=== PATIENT | female | born 1980 | race Caucasian/White ===

== ENCOUNTER → 2021-05-14 15:30 | Outpatient (CLI) | payer OTHER, SELFPAY ==
--- NOTE | ~2021-05-14 | US_ITS ---
EXAMINATION: US transvaginal DATE: 05/14/2021 15:56 INDICATION: Missing intrauterine device strings. TECHNIQUE: Multiple transvaginal sonographic images of the pelvis were obtained. COMPARISON: CT abdomen and pelvis 11/02/2017 FINDINGS: The uterus measures 8.9 x 4.1 x 4.7 cm. There is no free fluid in the pelvis. The endometrial complex measures 6 mm in thickness. There is an intrauterine device in expected position. There is a 1.9 cm subserosal fibroid. There is a 2.1 cm intramural fibroid. The right ovary measures 1.5 x 2.9 x 1.8 cm . The left ovary measures 2.4 x 1.7 x 2.0 cm. There is normal vascular flow in the ovaries. IMPRESSION: 1. Intrauterine device in expected position. 2. Uterine fibroids. Reviewed, dictated and finalized at location A. PERSON
== END ==
PROVIDERS: Visit Provider Nurse Practitioner
DX: D25.9 Leiomyoma of uterus, unspecified (principal); Z97.5 Presence of (intrauterine) contraceptive device
CPT/HCPCS: 76830

== ENCOUNTER → 2021-06-18 12:39 | Outpatient (CLI) | payer OTHER, SELFPAY ==
--- NOTE | ~2021-06-18 | MM_ITS ---
EXAMINATION: MM screening andrey BI w [facility] HISTORY: Screening mammogram TECHNIQUE: Craniocaudal and mediolateral oblique 3-D tomosynthesis images were obtained and synthetic 2-D images were generated. CAD analysis was submitted and interpreted. COMPARISON: None, baseline BREAST PARENCHYMAL COMPOSITION: The breasts are heterogeneously dense, which may obscure small masses . FINDINGS: RIGHT BREAST: There is no evidence of suspicious mass, calcification, or architectural distortion to suggest malignancy. LEFT BREAST: There is focal asymmetry in the upper outer quadrant of the left breast. In addition, th ere is an asymmetry in the posterior third of the slightly inner breast 15 cm from the nipple on the craniocaudal view. IMPRESSION: 1. Left breast findings as above. 2. Additional mammographic views and possible breast ultrasound are recommended. BI-RADS Category 0: Incomplete: Needs additional imaging evaluation. Reviewed, dictated and finalized at location A. ICATION OPERATOR IMPRESSION: 1. Left breast findings as above. 2. Additional mammographic views and possible breast ultrasound are recommended . BI-RADS Category 0: Incomplete: Needs additional imaging evaluation.
== END ==
PROVIDERS: PCP Nurse Practitioner Family; Visit Provider Nurse Practitioner
DX: Z12.31 Encounter for screening mammogram for malignant neoplasm of breast (principal); R92.8 Other abnormal and inconclusive findings on diagnostic imaging of breast
CPT/HCPCS: 77063; 77067

== ENCOUNTER → 2021-07-13 08:11 | Outpatient (CLI) | payer OTHER, SELFPAY ==
--- NOTE | ~2021-07-13 | MMUS_ITS ---
EXAMINATION: MM diagnostic andrey LT w [facility], US breast LT complete HISTORY: Follow-up left breast asymmetry TECHNIQUE: Additional 3-D tomosynthesis images of the left breast were performed and synthetic 2-D im ages were generated. CAD analysis was submitted and interpreted. High resolution complete left breast ultrasound was performed. COMPARISON: 06/18/2021 BREAST PARENCHYMAL COMPOSITION: Breast composed of scattered areas of fibroglandular density. FINDINGS: MAMMOGRAPHIC FINDINGS: There are no suspicious masses, calcifications or architectural distortion in the left breast to sugg est malignancy. ULTRASOUND: Complete bilateral US of all 4 quadrants of the the left breast and retroareolar region was reviewed. At 2:00, 10 cm from the nipple there is an oval hypoechoic mass measuring 5 x 2 x 5 mm without poste rior features or internal vascularity. Parallel orientation. At 3:00, 9 cm from the nipple there is a n oval hypoechoic 3 mm mass without posterior features, internal vascularity. No other masses are jalen ntified. IMPRESSION: 1. Probable benign findings of the left breast. 2. Recommend 6 month follow-up left breast ultrasound and diagnostic left mammogram BI-RADS CATEGORY 3-PROBABLY BENIGN FINDING Reviewed, dictated and finalized at location B. CHIEF IMPRESSION: 1. Probable benign findings of the left breast. 2. Recommend 6 month follow-up left breast ultrasound and diagnostic left mammo gram BI-RADS CATEGORY 3-PROBABLY BENIGN FINDING
== END ==
PROVIDERS: PCP Nurse Practitioner Family; Visit Provider Nurse Practitioner
DX: R92.8 Other abnormal and inconclusive findings on diagnostic imaging of breast (principal)
CPT/HCPCS: 76641; 77061; 77065; G0279

== ENCOUNTER 2021-08-17 09:27 | Outpatient (CLI) | payer OTHER, SELFPAY ==
[2021-08-17 09:52] LABS: Basophils Percent Auto 0.4 % (0.2-1.2); Eosinophils Absolute Auto 0.1 K/mm3 (0-0.3); Eosinophils Percent Auto 2.4 % (0-4.4); Hematocrit 40.6 % (37.0-47.0); Hemoglobin 13.4 g/dL (12.0-15.0); Immature Granulocyte Absolute 0.01 K/mm3 (0.00-0.031); Immature Granulocyte Percent A 0.2 % (0-0.5); Lymphocytes Percent Auto 49.3 % (18.3-44.2); Mean Corpuscular Hemoglobin 32.1 pg (26-34); Mean Corpuscular Volume 97.4 fl (80-100); Mean Platelet Volume 8.8 fl (7.4-10.4); Monocytes Absolute Auto 0.4 K/mm3 (0.1-0.6); Monocytes Percent Auto 7.7 % (2.6-8.5); Platelet Count Result 296 k/mm3 (150-375); Red Blood Count 4.17 M/mm3 (4.2-5.4); Red Cell Distribution Width 12.9 % (11.5-14.5); White Blood Count 5.1 K/mm3 (4.5-10.0)
[2021-08-17 10:12] LABS: Hemoglobin A1C 5.4 % (<5.7)
[2021-08-17 10:18] LABS: LDL Cholesterol Direct 165 mg/dL
[2021-08-17 10:34] LABS: Alanine Aminotransferase 16 U/L (4-35); Alkaline Phosphatase 49 U/L (38-126); Anion Gap 5 mmol/L (8-16); Aspartate Amino Transferase 29 U/L (14-36); Bilirubin,Total 0.3 mg/dL (0.2-1.3); Blood Urea Nitrogen 15 mg/dL (7-17); Calcium 9.1 mg/dL (8.4-10.2); Carbon Dioxide 26 mmol/L (22-30); Chloride 107 mmol/L (98-107); Cholesterol 266 mg/dL (0-200); Estimated Glomerular Filt Rate > 60; Glucose 94 mg/dL (65-110); HDL Direct 47 mg/dL; Potassium 3.8 mmol/L (3.4-5.0); Sodium 138 mmol/L (137-145); Triglycerides 107 mg/dL (<150)
== END 2021-08-17 09:28 | disposition home or self-care (01) ==
PROVIDERS: PCP Nurse Practitioner Family; Referring Provider Nurse Practitioner Psychiatric/Mental Health; Visit Provider Nurse Practitioner Family
DX: E78.5 Hyperlipidemia, unspecified (principal); Z13.0 Encounter for screening for diseases of the blood and blood-forming organs and certain disorders involving the immune mechanism; Z13.29 Encounter for screening for other suspected endocrine disorder; Z13.1 Encounter for screening for diabetes mellitus
CPT/HCPCS: 36415; 80053; 80061; 83036; 84443; 85025

== ENCOUNTER → 2022-02-18 08:01 | Outpatient (CLI) | payer OTHER, SELFPAY ==
--- NOTE | ~2022-02-18 | MMUS_ITS ---
EXAMINATION: MM diagnostic andrey LT w [facility], US breast LT limited HISTORY: Follow-up left breast masses TECHNIQUE: Additional 3-D tomosynthesis images of the left breast were performed and synthetic 2-D im ages were generated. CAD analysis was submitted and interpreted. High resolution Limited left breast ultrasound was performed. COMPARISON: Comparison to multiple prior studies sequentially, with oldest reviewed study dated 05/28. BREAST PARENCHYMAL COMPOSITION: Breast composed of scattered areas of fibroglandular density FINDINGS: MAMMOGRAPHIC FINDINGS: Asymmetries in the left breast are stable. No discrete mass, architectural distortion or suspicious c alcifications are identified. ULTRASOUND: Limited left breast ultrasound: At 2:00, 10 cm from the nipple there is an oval circumscribed hypoech oic 6 mm mass without internal vascularity or posterior acoustic shadowing. Parallel orientation. No significant change from prior examination. At 2-3:00, 9 cm from the nipple there is a round 4 mm hypo echoic mass without posterior features or internal vascularity without significant change from prior examination allowing for technique. IMPRESSION: 1. Stable left breast masses which are likely benign. 2. Recommend 6 month follow-up Limited left breast ultrasound and bilateral mammogram. BI-RADS category 3, probably benign findings. Reviewed, dictated and finalized at location A. IMPRESSION: 1. Stable left breast masses which are likely benign. 2. Recommend 6 month follow-up Limited left breast ultrasound and bilateral andrey mogram. BI-RADS category 3, probably benign findings.
== END ==
PROVIDERS: PCP Nurse Practitioner Family; Visit Provider Obstetrics & Gynecology Gynecology
DX: N63.20 Unspecified lump in the left breast, unspecified quadrant (principal)
CPT/HCPCS: 76642; 77061; 77065; G0279

== ENCOUNTER → 2022-08-13 14:06 | Outpatient (CLI) | payer OTHER, SELFPAY ==
--- NOTE | ~2022-08-13 | MMUS_ITS ---
EXAMINATION: MM diagnostic andrey BI w [facility], US breast LT complete HISTORY: Six-month follow-up of probably benign left breast masses TECHNIQUE: Bilateral full field and left spot ML, MLO and CC 3-D tomosynthesis images were performed and synthetic 2-D images were generated. CAD analysis was submitted and interpreted. High resolution complete left breast ultrasound examination including all 4 quadrants and subareolar area was perform ed. COMPARISON: 02/18/2022 left diagnostic mammogram and limited left breast ultrasound 07/13/2021 diagnostic left mammogram and complete left breast ultrasound 06/18/2021 bilateral screening mammogram BREAST PARENCHYMAL COMPOSITION: There are scattered areas of fibroglandular density. FINDINGS: MAMMOGRAPHIC FINDINGS: Stable mild fibroglandular asymmetry. No suspicious mass or architectural distortion, malignant calci fication, skin thickening or retraction or significant new or developing density is detected. ULTRASOUND: No suspicious left breast solid lesion or shadowing is detected. 2:00 5 cm from nipple: Parallel circumscribed 3.8 x 7.3 x 6.1 mm complex lesion without internal vasc ularity or posterior shadowing, benign in appearance 2:00 10 cm from nipple: Parallel circumscribed 3.8 x 7.3 x 6.5 mm circumscribed hypoechoic lesion wit hout internal vascularity or posterior shadowing 6:00 4 cm from nipple: There is a linear series of benign-appearing cysts measuring up to approximate ly 3.58 mm. 11:00 4 cm from nipple: Parallel circumscribed hypoechoic 2.4 x 4.5 x 3.9 mm lesion without internal vascularity or posterior shadowing 3:00 8 cm from nipple: Circumscribed 3.2 x 2.7 x 3.4 mm hypoechoic lesion without internal vascularit y or posterior shadowing IMPRESSION: 1. Benign findings 2. Routine annual mammographic screening is recommended BI-RADS Category 2: Benign finding(s). Reviewed, dictated and finalized at location A. TING PLATE MAKER IMPRESSION: 1. Benign findings 2. Routine annual mammographic screening is recommended BI-RADS Category 2: Benign finding(s).
== END ==
PROVIDERS: PCP Nurse Practitioner Family; Visit Provider Nurse Practitioner
DX: R92.8 Other abnormal and inconclusive findings on diagnostic imaging of breast (principal)
CPT/HCPCS: 76641; 77062; 77066; G0279

== ENCOUNTER → 2023-08-15 09:08 | Outpatient (CLI) | payer OTHER, SELFPAY ==
--- NOTE | ~2023-08-15 | US_ITS ---
Pelvic ultrasound. Clinical History: Hypertrophy uterus Technique: Realtime transabdominal scanning of the pelvis was performed. Color flow Doppler and Doppl er spectral analysis were performed. Findings: The uterus is anteverted, and measures 12.0 x 4.7 x 6.1 cm. The endometrial stripe has a t hickness of [address]. Multiple uterine fibroids are present, largest measuring 2.9 cm in di ameter.. The right ovary measures 2.6 x 1.8 x 3.2 cm. No significant right ovarian or adnexal mass is seen. The left ovary is not visualized. No significant left ovarian or adnexal mass is seen. There is no evidence of free fluid in the cul de sac. Impression: Multiple uterine fibroids, as detailed above. IUD in place. Reviewed, dictated and finalized at location . STIGATOR VICE Impression: Multiple uterine fibroids, as detailed above. IUD in place.
--- NOTE | ~2023-08-15 | MMUS_ITS ---
EXAMINATION: MM diagnostic andrey BI w [facility], US breast BI complete HISTORY: Breast pain TECHNIQUE: Additional 3-D tomosynthesis images of the breasts were performed and synthetic 2-D images were generated. CAD analysis was submitted and interpreted. High resolution complete bilateral breas t ultrasound was performed. COMPARISON: Comparison to multiple prior studies sequentially, with oldest reviewed study dated 05/28. BREAST PARENCHYMAL COMPOSITION: Not dense: There are scattered areas of fibroglandular density. FINDINGS: MAMMOGRAPHIC FINDINGS: The breasts are stable. No new masses, calcifications or architectural distortion in either breast to suggest malignancy. ULTRASOUND: Complete bilateral US of all 4 quadrants of the breasts and retroareolar region was reviewed. Right breast: There are small cysts of the right breast, largest measuring 7 mm at 10:00, 7 cm from t he nipple. There are mildly prominent ducts of the left breast at 5-6:00 position. No suspicious mass es in either breast to suggest malignancy. IMPRESSION: 1. No evidence for malignancy in either breast. Benign findings. 2. Routine yearly screening mammogram and regular clinical breast examination are recommended. BI-RADS Category 2: Benign finding(s). Reviewed, dictated and finalized at location A. OR ELECTRONICS TECHNICIAN IMPRESSION: 1. No evidence for malignancy in either breast. Benign findings. 2. Routine yearly screening mammogram and regular clinical breast examination a re recommended. BI-RADS Category 2: Benign finding(s).
== END ==
PROVIDERS: Visit Provider Nurse Practitioner
DX: N85.2 Hypertrophy of uterus (principal); D25.9 Leiomyoma of uterus, unspecified; Z97.5 Presence of (intrauterine) contraceptive device
CPT/HCPCS: 76641; 76856; 77062; 77066; G0279

== ENCOUNTER 2023-11-10 08:47 | Outpatient (CLI) | payer OTHER, SELFPAY ==
--- NOTE | 2023-11-10 08:57 | ECG_ITS ---
SEE SCANNED COPY FOR CONFIRMED REPORT MTDD
== END 2023-11-10 08:48 | disposition home or self-care (01) ==
LOC: ANHSURGERY 08:53
PROVIDERS: PCP Nurse Practitioner Family; Visit Provider Obstetrics & Gynecology Gynecology
DX: Z01.818 Encounter for other preprocedural examination (principal); I10 Essential (primary) hypertension; D21.9 Benign neoplasm of connective and other soft tissue, unspecified
CPT/HCPCS: 36415; 86850; 86900; 86901; 93005

== ENCOUNTER 2023-11-14 08:57 | Inpatient (IN) | payer OTHER, SELFPAY ==
--- NOTE | 2023-11-04 15:19 | SUR.PREOP ---
Report to the Outpatient Waiting Room, entrance under the green pavilion located off [facility], at time 0600 on date 11/14/23. Planned Procedure Time: 0730. Time changes happen often and if your time is changed the preop area will call you the afternoon before. - You and your visitor will be asked to self-screen and do not enter if you have any COVID symptoms. - A mask is optional within the hospital at this time. Patients may have clear liquids (water, carbonated beverages, clear teas, apple juice) until 3 hours prior to surgery with a maximum of 20 ounces. - NO CLEAR LIQUIDS AFTER 0430 - No food from midnight until time of surgery - Infants may have breast milk until 4 hours before surgery, formula 6 hours prior to surgery. - Children will be allowed to drink immediately following surgery. If applicable, please bring a bottle or sippy cup to assist with drinking. Juice, water, soda, and popsicles are readily available. For infants on formula, please bring formula the day of surgery. Pacifiers are allowed. Take the following medications with a SIP of water the morning of surgery: ALPRAZOLAM & BACLOFEN DO NOT STOP ANY OF YOUR OTHER PRESCRIPTION MEDICATIONS PRIOR TO SURGERY ?EXCEPT THE FOLLOWING Medications to discontinue per physician HOLD VITAMINS & SUPPLEMENTS BEGINNING ON 11/11/23 Date to take last dose N/A Please no make-up, nail portuguese, hairspray, perfume, deodorant, or body powder the day of surgery. No jewelry (including any body piercings) or valuables the day of surgery, leave them at home. Please take a shower or bath the night before, or the morning of, surgery with an antibacterial soap. Wear comfortable, loose fitting clothing. Children are encouraged to wear pajamas. - Jewelry must be removed prior to entering the operating room. Rings and piercings that are not removed may be cut off. - The hospital will not accept responsibility for valuables. - Please leave all valuables, including medications, at home the day of surgery. If you are going home after surgery, a licensed motor vehicle escort driver must drive you home. - NO public transportation without another adult if you receive anesthesia. - We recommend that an adult stay with you for 24 hours following discharge. - We also recommend that you do not drive, make important decision, drink alcoholic beverages, or take any drugs that were not prescribed by your health care provider for at least 24 hours after your discharge time. For Pediatric surgeries, we recommend two adults accompany the child home. Follow any additional instructions given to you from your surgeon. If you or anyone in your household have experienced Covid symptoms in the past week, please notify your surgeon or the nurse liaison at the phone number below for possible testing. Telephone instructions given to NINA CALERO and asked if any additional questions and then verbalized understanding. Patient advised to call surgeon office or pre surgery nurse liaison [phone] if any additional questions.
[2023-11-04 15:31] VITALS: BMI 42.3
[2023-11-14] VITALS (18 sets, daily range): BP systolic 131–160; BP diastolic 72–101; PULSE 60–93; RESP 10–20; TEMP 36.3–37.1; O2SAT 94–100
[2023-11-14] MEDS: LACTATED RINGERS 1,000 ML 30 ML IV CONT ×2 (06:18→09:00)
[2023-11-14] MEDS: ACETAMINOPHEN 500 MG TABLET 1000 MG PO (06:21)
[2023-11-14] MEDS: KETOROLAC 15 MG/ML VIAL (*BKC) IV PUSH (06:21)
--- NOTE | 2023-11-14 06:53 | WPDANESEPPF ---
Anes - Initial Pre Proc Eval Procedure: Operation Date: 11/14/23 07:30 Proposed Procedures p Total Abdominal Hysterectomy with Bilateral Salpingectomy - Maureen Baker MD Date/Time: 11/14/23 06:53 Surgeon: Maureen Baker MD Pre Op Diagnosis: Fibroids Patient Data Age: 43 Gender: F Height: 1.59 m Weight: 106.8 kg Allergies Allergy/AdvReac Type Severity Reaction Status Date / Time No Known Allergies Allergy Verified 11/14/23 06:53 Home Medications Medication Instructions Recorded Confirmed Type alprazolam 0.5 mg tablet 0.5 mg PO TID PRN Anxiety 09/23/23 11/04/23 History azelastine 137 mcg (0.1 %) nasal 1 spray intranasal Q12H #90 mL 09/23/23 11/04/23 Rx spray aerosol levonorgestrel 21 mcg/24 hr (up to 1 device intrauterine ONCE 09/23/23 11/04/23 History 8 years) 52 mg intrauterine device (Mirena) lisinopril 10 mg tablet 10 mg PO HS 09/23/23 11/04/23 History multivitamin (Daily Multi-Vitamin 1 tablet PO DAILY 09/23/23 11/04/23 History tablet) baclofen 20 mg tablet 50 mg PO TID 11/04/23 11/04/23 History montelukast 10 mg tablet 10 mg PO HS 11/04/23 11/04/23 History Patient hx anesthesia problems: none Family hx anesthesia problems: none Results Review: All pre-operative results and documents have been reviewed as part of the pre-operative evaluation. [facility] Past Medical History Medical History Acute left-sided back pain with sciatica Allergies Anxiety Anxiety Headache Hyperlipidemia Hypertension Obese Surgical History Surgical History H/O dilation and curettage History of Hx of LASIK Family History Family History Father Diabetes mellitus Sibling Depression Grandparent Diabetes mellitus Hypertension Heart disease Social History Social History Years smoked: 10 Smoking status: Former smoker Tobacco type: cigarettes Alcohol intake: never Substance use: never Last use: 06/27/2011 Do You Feel Safe in your Home?: Yes Lack of Transportation: No Lack of Food: Never True Current Housing: I Have Housing Concerned About Future Housing: No Difficulty Paying Gas/Electric Bills: No Difficulty Paying for Meds: No Currently Unemployed: No Education: Bachelor's Degree Difficulty w/ Childcare or Family Care: No Living arrangements: with family Occupation/Education: occupation 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 HTN, Hyperlipidemia, SAM w a mouthpiece. Informed Consent: The patient's anesthetic plan and its attendant risks and benefits were discussed with the patient/family/POA. Questions were solicited and answers provided to the satisfaction of the patient/family/POA.
--- NOTE | 2023-11-14 07:22 | WPDHPUPDATE1 ---
History and Physical Update Update Date/Time: 11/14/23 07:22 History and Physical has been reviewed, including an updated exam of the patient. There are NO changes in the patient's condition. Risks, benefits, and alternatives have been discussed and questions answered. Patient agrees to proceed with procedure.
--- NOTE | 2023-11-14 07:22 | PM.IMHP ---
H&P: HPI History of Present Illness Date/Time: 11/14/23 07:22 Chief Complaint: Symptomatic fibroid uterus Narrative: The patient is a 43-year-old with known fibroids. Patient has had no bleeding with her IUD however pelvic pressure and cramping has increased to the point she decided to proceed with hysterectomy. The patient also has increased urinary urgency but no frequency. Due to the size of her uterus the plan is to proceed with total abdominal hysterectomy and bilateral salpingectomy. Risks of infection, bleeding, injury to internal organs DVT and general anesthesia reviewed. Patient voices understanding and agrees to proceed postop expectations are discussed. Review of Systems Review of Systems: not repeated day of surgery; patient states no changes in status PMFSH Past Medical History Medical History (Updated 11/14/23 @ 07:25 by Maureen Baker MD) Allergies Anxiety Anxiety Hyperlipidemia Hypertension Obese Surgical History Surgical History H/O dilation and curettage History of Hx of LASIK Family History Family History Father Diabetes mellitus Sibling Depression Grandparent Diabetes mellitus Hypertension Heart disease Social History Social History Years smoked: 10 Smoking status: Former smoker Tobacco type: cigarettes Alcohol intake: never Substance use: never Last use: 06/27/2011 Do You Feel Safe in your Home?: Yes Lack of Transportation: No Lack of Food: Never True Current Housing: I Have Housing Concerned About Future Housing: No Difficulty Paying Gas/Electric Bills: No Difficulty Paying for Meds: No Currently Unemployed: No Education: Bachelor's Degree Difficulty w/ Childcare or Family Care: No Living arrangements: with family Occupation/Education: occupation 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: No Agree to blood products: No Meds Home Medications and Allergies Home Medications Medication Instructions Recorded Confirmed Type alprazolam 0.5 mg tablet 0.5 mg PO TID PRN Anxiety 09/23/23 11/14/23 History azelastine 137 mcg (0.1 %) nasal 1 spray intranasal Q12H #90 mL 09/23/23 11/14/23 Rx spray aerosol levonorgestrel 21 mcg/24 hr (up to 1 device intrauterine ONCE 09/23/23 11/04/23 History 8 years) 52 mg intrauterine device (Mirena) lisinopril 10 mg tablet 10 mg PO HS 09/23/23 11/14/23 History multivitamin (Daily Multi-Vitamin 1 tablet PO DAILY 09/23/23 11/14/23 History tablet) baclofen 20 mg tablet 50 mg PO TID 11/04/23 11/14/23 History montelukast 10 mg tablet 10 mg PO HS 11/04/23 11/14/23 History Allergies Allergy/AdvReac Type Severity Reaction Status Date / Time No Known Allergies Allergy Verified 11/14/23 06:53 Vital Signs Vital Signs - 24 hr 11/14/23 06:06 Temperature 97.9 F Pulse Rate 93 Respiratory Rate 16 Blood Pressure 144/79 H Pulse Oximetry 98 Oxygen Delivery Room Air Exam Const: General: healthy appearing and alert Orientation/consciousness: patient oriented x3 Resp: Effort & Inspection: normal respiratory effort : External Female Exam: normal external appearance Speculum Exam - Vagina: normal appearance of the vagina and normal vaginal discharge Speculum Exam - Cervix: normal appearance of the cervix Bimanual exam- vagina & uterus: consistency normal and enlarged Bimanual Exam- Adnexa, other: normal adnexae and No adnexal tenderness Neuro: General: patient oriented x3 Assessment and Plan Assessment and plan (1) Fibroids: Code(s): D21.9 - Benign neoplasm of connective and other soft tissue, unspecified Status: Acute Assessment and Plan: Plan to proceed with total abdominal h
[2023-11-14] MEDS: ceFAZolin 2 GM/D5W 50 ML 2 GM/50 ML BAG IVPB (08:01)
--- NOTE | 2023-11-14 08:50 | W.PM.PROC2 ---
Procedure Note - Detailed Date of Procedure 11/14/23 Pre-op Diagnosis symptomatic Fibroids Post-op Diagnosis Same Procedure Performed total abdominal hysterectomy with bilateral salpingectomy Surgeon Maureen Baker MD Anesthesia General Findings enlarged fibroid uterus; normal-appearing tubes left ovary; right ovary with a simple cyst and a hemorrhagic cyst Description of Procedure The patient is taken to the operating room and placed under anesthesia in the dorsal supine position. She was prepped and draped in usual sterile fashion. A Pfannenstiel skin incision was made with a scalpel and carried down to the underlying layer of fascia which was nicked in the midline. The incision was extended laterally using Escobar scissors. The subcutaneous tissue is made hemostatic using Bovie cautery. The fascia was tented using os Finders and the rectus muscles were dissected off using sharp and blunt dissection. The rectus muscles were in the midline and the peritoneum was entered bluntly. The incision was extended with blunt traction bowel was packed away using moist laparotomy sponges. The [place] is placed. The uterus was grasped on the cornu with large peans. The round ligaments are doubly ligated with 0 Vicryl, transected, and the anterior leaf the broad ligament incised meeting in the midline. The bladder was dissected off using a moist sponge stick. A Azra placed to retract the bladder. The tubes are grasped with [place] and the window created in the posterior leaf of the broad ligament. The pedicle is doubly clamped, transected, and suture ligated with 0 Vicryl. The uterine vessels are skeletonized, clamped, transected, and suture ligated with 0 Vicryl. The cardinal and uterosacral ligaments are serially clamped, transected, and suture ligated with 0 Vicryl. The uterosacral ligaments were tagged for future use. The scalpel used to enter the anterior vaginal cuff. The cuff was grasped with Allis clamps as the specimen was amputated with Skip scissors. The small piece of cervix was left posteriorly the right which was grasped with an [facility] and excised using Skip scissors. The vaginal cuff was closed using 0 Vicryl in a running locked fashion tying each angle to the ipsilateral uterosacral ligaments. Good hemostasis is noted. The pelvis is irrigated. All pedicles hemostatic. Instruments and sponges are removed. The fascia was closed using 0 Vicryl in a running fashion. Subcutaneous tissues are irrigated and noted to be hemostatic. Skin is closed using 4-0 Vicryl in a subcuticular fashion. Sponge, needle, and instrument counts are correct per the OR staff. Patient was awakened from anesthesia and taken to recovery in stable condition. Estimated Blood Loss 75 Drains Yes ( Bryant catheter) Packing No Pathology Yes ( uterus and tubes) Complications No immediate complications Condition Stable Disposition PACU
--- NOTE | 2023-11-14 08:56 | PM.DS ---
DS: Admitting Diagnosis Discharge Date 11/16/23 Admitting Diagnosis symptomatic fibroid uterus DS: Discharge Diagnosis Discharge Diagnosis (1) Status post total abdominal hysterectomy: Code(s): Z90.710 - Acquired absence of both cervix and uterus Status: Acute DS: Summary Hospital Course Reason for hospitalization: Postop care Hospital Course: At the time of discharge, patient was tolerating regular diet, voiding, and ambulating without difficulty. Pain is under good control. Status at Discharge Functional status at discharge: independent ambulation Overall status at discharge: patient is progressing back to baseline Time Spent with Patient Time attestation: Total time spent providing and/or coordinating discharge services: DS: Data Data Completed and Pending Pending studies at discharge: Pending at discharge 11/14/23 08:48 Surgical [PTH] Routine Discharge Plan Discharge Attending physician on discharge: Maureen Baker Discharging Clinician: Maureen Baker Patient Disposition: Home, Self-Care Activity: may shower, may drive after 2 weeks and pelvic rest Diet: regular Wound Care Instructions: incision open to air Patient Instructions: Hysterectomy (DC) Stand Alone Forms: General Discharge Instructions Follow-up/Referrals: Maureen Baker MD [Physician] - 1 Week (and 6 wk) Discharge Medications: New hydrocodone-acetaminophen 5-325 mg Tablet 1 tablet PO Q3H PRN (Reason: Pain Rated 5 Or Less) 14 Days Qty: 15 0RF ibuprofen 600 mg Tablet 600 mg PO Q6H PRN (Reason: Cramping) 30 Days Qty: 30 0RF Continued lisinopril 10 mg tablet 10 mg PO HS alprazolam 0.5 mg tablet 0.5 mg PO TID PRN (Reason: Anxiety) multivitamin [Daily Multi-Vitamin] Tablet 1 tablet PO DAILY azelastine 137 mcg (0.1 %) aerosol,spray 1 spray intranasal Q12H Qty: 90 3RF Rx Instructions: administer into each nostril baclofen 20 mg tablet 50 mg PO TID montelukast 10 mg tablet 10 mg PO HS Discontinued Mirena 21 mcg/24 hours (8 yrs) 52 mg intrauterine device 1 device intrauterine ONCE Rx Instructions: as a single dose Date of admission: 11/14/23 08:57 Primary Care Provider: Molly Paz Admitting Provider: Maureen Baker Attending physician on admission: Maureen Baker Condition: Stable
[2023-11-14] MEDS: fentaNYL CITRATE INJ (*CRX) 100 MCG/2 ML VIAL 25 MCG IV PUSH ×8 (09:20→09:51)
[2023-11-14] MEDS: HYDROmorphone HCL INJ (*CRX) 1 MG/ML SYR 0.25 MG IV PUSH ×4 (09:55→10:10)
[2023-11-14] MEDS: diazePAM INJ (*CRX) 10 MG/2 ML SYRINGE 2 MG IV PUSH (10:30)
--- NOTE | 2023-11-14 11:11 | PC.NURSE ---
This patient, Laurie Garcia, was received from PACU per bed to room 289. Patient/family oriented to unit policies and routines
[2023-11-14] MEDS: DEXTROSE 5%/LACTATED RINGERS 1,000 ML 125 ML IV CONT ×2 (11:38→20:46)
[2023-11-14] MEDS: FENTANYL 600MCG/NS30MLPCA(*CRX 600 MCG/30 ML PCA.VIAL IV CONT (12:41)
[2023-11-14] MEDS: SIMETHICONE 80 MG TAB.CHEW PO (20:46)
[2023-11-14] MEDS: MONTELUKAST SODIUM 10 MG TABLET PO (20:46)
[2023-11-14] MEDS: ALPRAZolam (*CRX) 0.5 MG TABLET PO (20:47)
[2023-11-14] MEDS: BACLOFEN 10 MG TABLET 50 MG PO (20:47)
[2023-11-14] MEDS: lisinopriL 10 MG TABLET PO (20:47)
[2023-11-14] MEDS: AZELASTINE HCL NASAL 0.1% 137 MCG/SPR 30 ML BTL 1 SPRAY NASAL (20:48)
[2023-11-15 00:21] VITALS: BP 134/82; PULSE 89; RESP 18; TEMP 37.3; O2SAT 97
[2023-11-15] MEDS: HYDROcodone/acetaminophen (*CRX) 10-325 MG TABLET 1 TAB PO ×4 (00:50→12:49)
[2023-11-15] MEDS: KETOROLAC 30 MG/ML VIAL (*BKC) IV PUSH (00:50)
[2023-11-15 04:25] VITALS: RESP 20; O2SAT 99
[2023-11-15 04:31] VITALS: RESP 18; O2SAT 99
[2023-11-15] MEDS: FENTANYL 600MCG/NS30MLPCA(*CRX 600 MCG/30 ML PCA.VIAL IV CONT (04:31)
[2023-11-15 04:53] VITALS: BP 116/58; PULSE 63; RESP 18; TEMP 36.7; O2SAT 99
[2023-11-15] MEDS: DEXTROSE 5%/LACTATED RINGERS 1,000 ML 125 ML IV CONT (04:59)
[2023-11-15 05:05] LABS: Basophils Percent Auto 0.1 % (0.2-1.2); Hemoglobin 12.1 g/dL (12.0-15.0); Immature Granulocyte Absolute 0.04 K/mm3 (0.00-0.031); Immature Granulocyte Percent A 0.3 % (0-0.5); Lymphocytes Absolute Auto 1.71 K/mm3 (0.9-3.2); Mean Corpuscular HGB Conc 32.7 g/dl (32-36); Mean Corpuscular Hemoglobin 31.5 pg (26-34); Mean Corpuscular Volume 96.4 fl (80-100); Mean Platelet Volume 9.6 fl (7.4-10.4); Monocytes Absolute Auto 1.4 K/mm3 (0.1-0.6); Monocytes Percent Auto 11.4 % (2.6-8.5); Neutrophils Percent Auto 74.2 % (45.5-73.1); Platelet Count Result 287 k/mm3 (150-375); Red Blood Count 3.84 M/mm3 (4.2-5.4); Red Cell Distribution Width 12.9 % (11.5-14.5); White Blood Count 12.2 K/mm3 (4.5-10.0)
--- NOTE | 2023-11-15 07:39 | PM.GYNPNOP ---
NEEDLE LOOM WEAVER - A/P Postoperative Procedures: Procedures Operation Date: 11/14/23 07:30 Actual Procedure Side Surgeon p Total Abdominal Hysterectomy with Bilateral Salpingectomy Bilateral Maureen Baker MD Postoperative day: 1 Postoperative status: doing well Postoperative plan: routine post-op care Time Spent With Patient Time: Total time spent is greater than 50% in coordination of care (as documented) at patient's floor/unit and/or counseling patient: Time with patient: less than 15 minutes NEEDLE LOOM WEAVER- PN:Subj Post-Op Subjective Date/time seen: 11/15/23 07:39 Subjective: pain is well controlled and patient is tolerating oral intake Exam Narrative: inc c/d/i abdomen soft, nt NEEDLE LOOM WEAVER - PN: Obj Data Vital Signs Vital Signs: Vital Signs - 24 hr 11/14/23 09:00 11/14/23 09:15 11/14/23 09:30 Temperature 97.3 F L Pulse Rate 75 68 60 Respiratory Rate 16 12 10 L Blood Pressure 138/77 147/91 H 133/97 H Pulse Oximetry 100 100 100 Oxygen Delivery Simple Face Mask Simple Face Mask Simple Face Mask Oxygen Flow Rate 8 8 8 11/14/23 09:45 11/14/23 10:00 11/14/23 10:15 Temperature Pulse Rate 71 75 71 Respiratory Rate 12 11 L 12 Blood Pressure 131/89 133/85 139/101 H Pulse Oximetry 94 97 99 Oxygen Delivery Room Air Nasal Cannula Nasal Cannula Oxygen Flow Rate 2 2 11/14/23 10:30 11/14/23 10:45 11/14/23 11:00 Temperature Pulse Rate 65 62 62 Respiratory Rate 11 L 13 14 Blood Pressure 142/101 H 160/87 H 139/97 H Pulse Oximetry 98 97 97 Oxygen Delivery Nasal Cannula Nasal Cannula Nasal Cannula Oxygen Flow Rate 2 2 2 11/14/23 11:45 11/14/23 11:15 11/14/23 16:35 Temperature 97.9 F Pulse Rate 72 Respiratory Rate 16 18 Blood Pressure 139/82 Pulse Oximetry 98 99 100 Oxygen Delivery Nasal Cannula Oxygen Flow Rate 2 11/14/23 16:40 11/14/23 16:40 11/14/23 16:00 Temperature 98.3 F Pulse Rate 66 Respiratory Rate 18 Blood Pressure 131/81 Pulse Oximetry 100 100 100 Oxygen Delivery Room Air Nasal Cannula Oxygen Flow Rate 1 11/14/23 19:16 11/14/23 19:19 11/14/23 20:54 Temperature 98.7 F Pulse Rate 87 Respiratory Rate 20 20 18 Blood Pressure 135/72 Pulse Oximetry 98 98 99 Oxygen Delivery Oxygen Flow Rate 11/15/23 00:21 11/15/23 04:25 11/15/23 04:31 Temperature 99.2 F Pulse Rate 89 Respiratory Rate 18 20 18 Blood Pressure 134/82 Pulse Oximetry 97 99 99 Oxygen Delivery Oxygen Flow Rate 11/15/23 04:53 Temperature 98.0 F Pulse Rate 63 Respiratory Rate 18 Blood Pressure 116/58 L Pulse Oximetry 99 Oxygen Delivery Oxygen Flow Rate Intake/Output Intake/Output: Intake & Output 11/12/23 11/13/23 11/14/23 11/15/23 23:59 23:59 23:59 23:59 Intake Total 3109.5 1018.5 Output Total 850 3050 Balance 2259.5 -2031.5 Meds/Results Medications: Active Medications Generic Name Dose Route Start Last Admin Trade Name Freq PRN Reason Stop Dose Admin Hydrocodone Bitart/Acetaminophen 1 tab 11/14/23 11:06 11/15/23 04:43 Hydrocodone/Acetaminophen (*Crx) 10-325 Mg Tablet PO 1 tab Q3H PRN Administration Pain Rated 6 or Greater Hydrocodone Bitart/Acetaminophen 1 tab 11/14/23 11:06 Hydrocodone/Acetaminophen (*Crx) 5-325 Mg Tablet PO Q3H PRN Pain Rated 5 or Less Alprazolam 0.5 mg 11/14/23 11:06 11/14/23 20:47 Alprazolam (*Crx) 0.5 Mg Tablet PO 0.5 mg TID PRN Administration Anxiety Azelastine HCl 1 spray 11/14/23 11:06 11/14/23 20:48 Azelastine Hcl Nasal 0.1% 137 Mcg/Spr 30 Ml Btl NASAL 1 spray Q12HR MANISHA Administration Baclofen 50 mg 11/14/23 21:00 11/14/23 20:47 Baclofen 10 Mg Tablet PO 50 mg HS MANISHA Administration Fentanyl Citrate 600 mcg in 30 mls @ 0.5 mls/hr 11/14/23 11:06 11/15/23 04:31 Fentanyl 600 Mcg/Ns 30 Ml Guitar Maker Hand IV CONT 10 mcg/hr PRN PRN 0.5 mls/hr ADVERTISING SALES MANAGER Management Administration Protocol 10 MCG/HR Dextrose/Lactated Ringer's 1,0
[2023-11-15] MEDS: IBUPROFEN 600 MG TABLET PO ×2 (07:58→17:13)
[2023-11-15] MEDS: SIMETHICONE 80 MG TAB.CHEW PO ×3 (07:58→17:13)
[2023-11-15 08:25] VITALS: BP 124/78; PULSE 78; RESP 18; TEMP 37.2; O2SAT 96
--- NOTE | 2023-11-15 08:51 | P.PNAN_ITS ---
Anes - Prog Note Post-Op Date/Time: 11/15/23 08:51 Cardiovascular status: normal Respiratory status: normal Airway patency: baseline Mental status: baseline Post-Op hydration status: normal Vital Signs: Last Vital Signs Temp 36.7 C 11/15/23 04:53 Pulse 63 11/15/23 04:53 Resp 18 11/15/23 04:53 BP 116/58 L 11/15/23 04:53 Pulse Ox 99 11/15/23 04:53 O2 Del Method Room Air 11/14/23 16:40 O2 Flow Rate 1 11/14/23 16:00 Pain Score (VAS): 08/06 I/O: Intake & Output 11/14/23 11/15/23 11/15/23 23:59 07:59 15:59 Intake Total 1209.5 1020.5 Output Total 850 3050 Balance 359.5 -2029.5 Laboratory Tests 11/15/23 04:39 11/15/23 04:39 WBC 12.2 H RBC 3.84 L Hgb 12.1 Hct 37.0 MCV 96.4 MCH 31.5 MCHC 32.7 RDW 12.9 Plt Count 287 MPV 9.6 Immature Gran % (Auto) 0.3 Neut % (Auto) 74.2 H Lymph % (Auto) 14.0 L [place] % (Auto) 11.4 H Eos % (Auto) 0.0 Baso % (Auto) 0.1 L Lymph # (Auto) 1.71 [place] # (Auto) 1.4 H Eos # (Auto) 0.0 Baso # (Auto) 0.0 Abs Immat Gran (auto) 0.04 H Absolute Neuts (auto) 9.0 H Absolute Nucleated RBC 0.000 Nucleated RBC % 0.0 Post-procedural complaints: none Patient Feedback: Patient satisfied with anesthetic care.
[2023-11-15] MEDS: ACETAMINOPHEN/ASPIRIN/CAFFEINE 250-250-65 MG TABLET 1 TABLET PO (10:09)
[2023-11-15 19:50] VITALS: BP 138/75; PULSE 86; RESP 18; TEMP 37.1; O2SAT 100
[2023-11-15] MEDS: BACLOFEN 10 MG TABLET 50 MG PO (21:59)
[2023-11-15] MEDS: CALCIUM CARBONATE (TUMS) 500 MG (200 MG ELEMENTAL) PO ×2 (21:59→22:05)
[2023-11-15] MEDS: MONTELUKAST SODIUM 10 MG TABLET PO (21:59)
[2023-11-15] MEDS: ALPRAZolam (*CRX) 0.5 MG TABLET PO (21:59)
[2023-11-15] MEDS: lisinopriL 10 MG TABLET PO (22:05)
[2023-11-15] MEDS: HYDROcodone/acetaminophen (*CRX) 5-325 MG TABLET 1 TAB PO (23:07)
[2023-11-16] MEDS: HYDROcodone/acetaminophen (*CRX) 5-325 MG TABLET 1 TAB PO (03:25)
[2023-11-16 04:00] VITALS: BP 140/80; PULSE 81; RESP 20; TEMP 36.8; O2SAT 98
[2023-11-16] MEDS: ACETAMINOPHEN/ASPIRIN/CAFFEINE 250-250-65 MG TABLET 1 TABLET PO (06:20)
--- NOTE | 2023-11-16 07:09 | PM.GYNPNOP ---
INTEGRITY CONSULTANT - A/P Postoperative Procedures: Procedures Operation Date: 11/14/23 07:30 Actual Procedure Side Surgeon p Total Abdominal Hysterectomy with Bilateral Salpingectomy Bilateral Maureen Baker MD Postoperative day: 2 Postoperative status: doing well Postoperative plan: discharge Time Spent With Patient Time: Total time spent is greater than 50% in coordination of care (as documented) at patient's floor/unit and/or counseling patient: Time with patient: less than 15 minutes INTEGRITY CONSULTANT- PN:Subj Post-Op Subjective Date/time seen: 11/16/23 07:00 Interval history: POD 2 from [facility]. Doing well. pain controlled with po meds. Tolerating fluid and food intake. Urinating without difficutly. Denies vaginal bleeding. Subjective: patient desires discharge and pain is well controlled Review of Systems Review of Systems: All systems reviewed & are unremarkable except as noted in HPI and below Exam Const: General: cooperative, no acute distress and awake Orientation/consciousness: patient oriented x3 Limitations: no limitations Resp: Effort & Inspection: normal respiratory effort and able to speak in complete sentences Auscultation: clear to auscultation bilaterally Cardio: Rate: regular rate Peripheral pulses: Peripheral pulses 2+ throughout GI: Inspection: normal to inspection Auscultation: normal bowel sounds : General: Yes bladder normal to palpation Bimanual exam- vagina & uterus: bladder normal to palpation Skin: General skin exam: normal color Other: Incision C/D/I Neuro: General: patient oriented x3 Cognition (Neuro): normal cognition Speech: normal speech Extrem: General: normal to inspection Psych: Appearance: grossly normal Mental Status: mental status grossly normal Speech and movement: Normal speech and movement present Affect: normal affect Attitude: cooperative Thought process: Normal thought process present INTEGRITY CONSULTANT - PN: Obj Data Vital Signs Vital Signs: Vital Signs - 24 hr 11/15/23 08:25 11/15/23 08:00 11/15/23 19:50 Temperature 98.9 F 98.7 F Pulse Rate 78 86 Respiratory Rate 18 18 Blood Pressure 124/78 138/75 Pulse Oximetry 96 100 Oxygen Delivery Room Air 11/16/23 04:00 Temperature 98.2 F Pulse Rate 81 Respiratory Rate 20 Blood Pressure 140/80 Pulse Oximetry 98 Oxygen Delivery Intake/Output Intake/Output: Intake & Output 11/13/23 11/14/23 11/15/23 11/16/23 23:59 23:59 23:59 23:59 Intake Total 3109.5 1320.5 Output Total 850 3500 Balance 2259.5 -2179.5 Meds/Results Medications: Active Medications Generic Name Dose Route Start Last Admin Trade Name Freq PRN Reason Stop Dose Admin Acetaminophen/Aspirin/Caffeine 1 tablet 11/15/23 09:44 11/16/23 06:20 Acetaminophen/Aspirin/Caffeine 250-250-65 Mg Tablet PO 1 tablet Q6H PRN Administration Migraine Headache Hydrocodone Bitart/Acetaminophen 1 tab 11/14/23 11:06 11/15/23 12:49 Hydrocodone/Acetaminophen (*Crx) 10-325 Mg Tablet PO 1 tab Q3H PRN Administration Pain Rated 6 or Greater Hydrocodone Bitart/Acetaminophen 1 tab 11/14/23 11:06 11/16/23 03:25 Hydrocodone/Acetaminophen (*Crx) 5-325 Mg Tablet PO 1 tab Q3H PRN Administration Pain Rated 5 or Less Alprazolam 0.5 mg 11/14/23 11:06 11/15/23 21:59 Alprazolam (*Crx) 0.5 Mg Tablet PO 0.5 mg TID PRN Administration Anxiety Azelastine HCl 1 spray 11/14/23 11:06 11/16/23 04:54 Azelastine Hcl Nasal 0.1% 137 Mcg/Spr 30 Ml Btl NASAL Not Given Q12HR MANISHA Baclofen 50 mg 11/14/23 21:00 11/15/23 21:59 Baclofen 10 Mg Tablet PO 50 mg HS MANISHA Administration Calcium Carbonate 200 mg 11/15/23 22:00 11/15/23 22:05 Calcium Carbonate (Tums) 500 Mg (200 Mg Elemental) PO 200 mg Q6H PRN Administration Indigestion Ibuprofen 600 mg 11/14/23 11:06 11/15/23 17:13 Ibuprofen 600 Mg Tablet PO 600 mg Q6H PRN Administration Cramping Ketorolac Tromethamine 3
[2023-11-16] MEDS: IBUPROFEN 600 MG TABLET PO (07:58)
[2023-11-16] MEDS: SIMETHICONE 80 MG TAB.CHEW PO (07:58)
[2023-11-16] MEDS: ALPRAZolam (*CRX) 0.5 MG TABLET PO (07:59)
[2023-11-16 08:05] VITALS: BP 146/88; PULSE 82; RESP 16; TEMP 36.4; O2SAT 100
== END 2023-11-16 08:25 | disposition home or self-care (01) | DRG 742 ==
LOC: ANHSURGERY 08:57 → ANHOB2 11-16 08:13 → ANH3MEDSUR 11-17 07:36
PROVIDERS: Admitting Provider Obstetrics & Gynecology Gynecology; PCP Nurse Practitioner Family; Visit Provider Obstetrics & Gynecology Gynecology
PROC: 0UT94ZZ Resection of Uterus, Percutaneous Endoscopic Approach (ICD-10-PCS; principal; 2023-11-14 07:30)
DX: D25.9 Leiomyoma of uterus, unspecified (principal); Z68.41 Body mass index [BMI] 40.0-44.9, adult; N83.201 Unspecified ovarian cyst, right side; R39.15 Urgency of urination; F41.9 Anxiety disorder, unspecified; E78.5 Hyperlipidemia, unspecified; I10 Essential (primary) hypertension; E66.01 Morbid (severe) obesity due to excess calories; Z87.891 Personal history of nicotine dependence
CPT/HCPCS: 36415; 85025; 88307; 99199; A9270; J0690; J1100; J1170; J1200; J1885; J2250; J2405; J2704; J3010; J3360; J7120; J7121; Q9968

== ENCOUNTER 2023-11-17 15:56 | Emergency (ER) | payer OTHER, SELFPAY ==
[2023-11-17 15:58] VITALS: BP 155/85; PULSE 110; RESP 20; TEMP 36.4; O2SAT 97
== END 2023-11-17 16:56 | disposition left against medical advice (07) ==
PROVIDERS: PCP Obstetrics & Gynecology Gynecology
DX: K59.00 Constipation, unspecified (principal)
CPT/HCPCS: 99199

== ENCOUNTER 2024-07-25 13:57 | Outpatient (CLI) | payer OTHER, SELFPAY ==
[2024-07-25 14:30] LABS: Basophils Percent Auto 0.3 % (0.2-1.2); Eosinophils Absolute Auto 0.1 K/mm3 (0-0.3); Eosinophils Percent Auto 1.8 % (0-4.4); Hematocrit 44.2 % (37.0-47.0); Hemoglobin 14.6 g/dL (12.0-15.0); Immature Granulocyte Absolute 0.01 K/mm3 (0.00-0.031); Immature Granulocyte Percent A 0.1 % (0-0.5); Lymphocytes Absolute Auto 2.95 K/mm3 (0.9-3.2); Lymphocytes Percent Auto 37.2 % (18.3-44.2); Mean Corpuscular Hemoglobin 30.4 pg (26-34); Mean Corpuscular Volume 92.1 fl (80-100); Mean Platelet Volume 9.5 fl (7.4-10.4); Monocytes Absolute Auto 0.5 K/mm3 (0.1-0.6); Monocytes Percent Auto 6.3 % (2.6-8.5); Neutrophils Absolute Auto 4.3 K/mm3 (1.3-6.7); Neutrophils Percent Auto 54.3 % (45.5-73.1); Platelet Count Result 320 k/mm3 (150-375); Red Cell Distribution Width 12.9 % (11.5-14.5); White Blood Count 7.9 K/mm3 (4.5-10.0)
--- OUTSIDE RECORDS SUMMARY | 2024-07-25 14:51 | XMS_ITS | Clinical Summary ---
Author Organization [facility] Address [address] [place] [address]. [place], [place] [address] [place] [address] Care Team Providers Care Inner Diameter Grinder Tool Name Role Phone Unavailable Primary Care Provider Unavailabl e Social History Tobacco Use Types Packs/Day Years Used Date Smoking Tobacco: Never Assessed Comments Unknown Sex and Gender Information Value Date Recorded Sex Assigned at Not on file Legal Sex Female 5:59 PM CDT Gender Identity Not on file Sexual Orientation Not on file Last Filed Vital Signs Vital Sign Reading Time Taken Comments Blood Pressure 132/86 01/15/2013 3:38 PM CDT Pulse 82 01/15/2013 3:38 PM CDT Temperature - - Respiratory Rate - - Oxygen Saturation - - Inhaled Oxygen Concentration - - Weight 107 kg (236 lb) 01/15/2013 3:38 PM CDT Height 157.5 cm (5' 2 ) 01/15/2013 3:38 PM CDT Body Mass Index 43.16 01/15/2013 3:38 PM CDT Plan of Treatment Health Maintenance Due Date Last Done Comments Cervical Cancer Screening Pa p Smear (Age 30 to 64) Every 3 Years 1981 Annual Physical 1984 Hepatitis C 1999 DTaP, Tdap and Td Vaccines ( 1 - Tdap) 2000 Hepatitis B Vaccines (1 of 3 - 19+ 3-dose series) 2000 Cervical Cancer Screening Pa p with HPV Testing (Age 30 to 64) Every 5 Years 2011 Cervical Cancer Screening with HPV 2011 Mammogram Screening 2021 COVID-19 Vaccine (2023-2 5 season) 2024 Influenza Adult (#1) 2024 HPV Vaccines Aged Out No longer eligi ble based on patient's age to complete this topic Meningococcal B Vaccine Aged Out No l onger eligible based on patient's age to complete this topic Meningococcal Vaccine Aged Out No srikanth joe eligible based on patient's age to complete this topic Pneumococcal Vaccine: Pediat rics (0 to 5 Years) and At-Risk Patients (6 to 64 Years) Aged Out No longer eligible b ased on patient's age to complete this topic RSV Immunizations Under 20 Months Aged Out No longer eligible based on patient's age to complete this topic
== END 2024-07-25 13:58 | disposition home or self-care (01) ==
PROVIDERS: PCP Nurse Practitioner Family; Visit Provider Nurse Practitioner Family
DX: R69 Illness, unspecified (principal); Z13.0 Encounter for screening for diseases of the blood and blood-forming organs and certain disorders involving the immune mechanism
CPT/HCPCS: 36415; 85025

== ENCOUNTER 2024-12-20 14:16 | Outpatient (CLI) | payer OTHER, SELFPAY ==
--- NOTE | ~2024-12-20 | MM_ITS ---
EXAMINATION: MM screening [facility] HISTORY: Screening mammogram TECHNIQUE: Craniocaudal and mediolateral oblique 3-D tomosynthesis images were obtained and synthetic 2-D images were generated. CAD analysis was submitted and interpreted. COMPARISON: 08/15/2023, 08/13/2022, 02/18/2022 BREAST PARENCHYMAL COMPOSITION:Not Dense. There are scattered areas of fibroglandular density. FINDINGS: No suspicious mass, calcification, or architectural distortion are identified in either driss ast to suggest malignancy. There has been no suspicious interval change. IMPRESSION: No mammographic evidence of malignancy. Recommend routine screening mammography in one year. BI-RADS Category 1: Negative Reviewed, dictated and finalized at location .
== END 2024-12-20 14:17 | disposition home or self-care (01) ==
LOC: MICIMG 14:16
PROVIDERS: PCP Nurse Practitioner Family; Visit Provider Nurse Practitioner
DX: Z12.31 Encounter for screening mammogram for malignant neoplasm of breast (principal)
CPT/HCPCS: 77063; 77067

== ENCOUNTER 2025-04-08 11:03 | Emergency (ER) | payer OTHER, SELFPAY ==
--- OUTSIDE RECORDS SUMMARY | 2024-06-04 12:30 | XMS_ITS ---
Author Organization [facility] [place] ([address]) Address [address] [place] [address] Care Team Providers Care Dock Hand Name Role Phone Molly Oliveira Primary Care Provider Mehnaz vailable Veronica Lieberman Unavailable [phone] Melita Capps Unavailable [phone] REASON FOR VISIT E LEARNING MANAGER Allergies Encounters Encounter Location Date Provider Diagnosis [facility] [address] [place] [address] 06/04/2024 Melita Capps Plan Of Treatment No Information Progress Notes * Laurie CALERO TDOB:[birth year] (45 yo F)Acc No.[id number]:06/04/2024 Progress Notes Patient: Anni HUFF Laurie Marilyn Provider: RICKY Cardozo :1980 A ge:44 Y S ex:Female Date:06/04/2024 Address:[address] [place], [place]-[address] Pcp:RHODA Coy Subjective: * Chief Complaints: * 1 . E LEARNING MANAGER Allergies. * Medical History: Objective: * Vitals: Assessment: Plan: * Treatment: * Billing Information: * Visit Code: * Procedure Codes: * Electronic signature of Melita Capps DNP, FNP-C on 04/08/2025 at 12:22 PM CDT Sign off status: Pending * Provider: Sena Capps DNP JEWELRY JOBBER-C Date: 1 08/05/2023 Generated for Pushpa Donato/Juan Jose on: 12:22 PM CDT
--- NOTE | 2025-04-08 11:06 | ED.NAVMDI ---
HPI - Nausea/Vomiting/Diarrhea General Chief complaint: Nausea/Vomiting/Diarrhea Stated complaint: n/v Time Seen by Provider: 04/08/25 11:06 Source: patient Mode of arrival: ambulatory Limitations: no limitations History of Present Illness HPI Narrative: Laurie is a 45-year-old female patient presenting to the clinic today with complaints of nausea, vomiting, diarrhea, weakness, sweats, chills, and abdominal cramping x3 days. She reports she has vomited at least 3 times this morning. Last time she vomited was just prior to arrival. Has been taking Zofran without relief of nausea. Feels as though she is weak and dehydrated. She denies any muscle cramping. No known fevers. Does have chronic nasal congestion. Denies sore throat. Denies any pain currently. Related Data Home Medications ?Medication ?Instructions ?Recorded ?Confirmed ?Last Taken ?Type multivitamin (Daily Multi-Vitamin 1 tablet PO DAILY 09/23/23 04/08/25 11/10/23 History tablet) estradiol-norethindrone acet 1 1 tablet PO DAILY 09/19/24 04/08/25 Unknown History mg-0.5 mg tablet (Mimvey) polyethylene glycol 3350 17 17 g PO DAILY 03/29/25 03/29/25 Unknown History gram/dose oral powder (Miralax) Allergies Allergy/AdvReac Type Severity Reaction Status Date / Time No Known Allergies Allergy Verified 04/08/25 11:21 Review of Systems Review of Systems: Pertinent positives per HPI. Patient denies any fever, chills, rash, headache, visual changes, dizziness, cough, sore throat, shortness of breath, chest pain, palpitations, diarrhea, constipation, abdominal pain, or any urinary issues. [facility] Past Medical History Medical History Anxiety Hyperlipidemia Obese Hypertension Anxiety Allergies Surgical History Surgical History H/O: hysterectomy due for fibroids October 2023 History of Hx of LASIK H/O dilation and curettage Family History Family History Father Diabetes mellitus Sibling Depression Grandparent Diabetes mellitus Hypertension Heart disease Social History Social History Social History: 09/16/24 Very confident with medical forms Years smoked: 10 Smoking status: Former smoker Alcohol intake: never Substance use: never Last use: 06/27/2011 Do You Feel Safe in your Home?: Yes Lack of Transportation: No Lack of Food: Never True Current Housing: I Have Housing Concerned About Future Housing: No Difficulty Paying Gas/Electric Bills: No Difficulty Paying for Meds: No Currently Unemployed: No Education: Bachelor's Degree Difficulty w/ Childcare or Family Care: No Living arrangements: with family Occupation/Education: occupation 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 There is no relevant family history pertinent to the patient complaint. Exam Narrative: General: Well-developed, obese, anxious appearing Head: Normocephalic, atraumatic Eyes: Pupils equally round and reactive to light bilaterally, EOM intact, sclera and conjunctive clear, no discharge, lids normal Ears: TMs intact and clear, ear canals clear, no drainage, grossly hearing normal. Nose: Nares patent, clear discharge, no inflammation, no sinus tenderness. Mouth: Oropharynx without lesions or masses, good dentition, MM dry. Neck: Supple, trachea midline, no enlargement of anterior or posterior cervical nodes, no thyroid masses or goiter palpable. Cardio: Regular rate and rhythm, s1 and s2 normal, no murmur appreciated. Resp: Clear to auscultation bilaterally anteriorly and posteriorly, no rhonchi, rales, wheezing or rubs Abdomen: Soft, pliable, nondistended, bowel sounds present in all quadrants, non-tender to palpation, no organomegly, no CVAT tenderness. Course Course Emergency Course: Portions of this record may have been created with voice recognition software. Level of Care: Express Care Visit Vital Signs Vital signs: Vital signs reviewed Transfer Transfered to: [place] Transportation: Other (Private car) Transfer rationale: N/V/D/ mild dehydration - patient requesting iv fluids Accepting physician: Dr. Flynn Transfer comments: Private car MDM - Nausea/Vomiting/Diarrhea MDM Narrative Medical decision making narrative: At the time of visit patient is resting comfortably on the exam table. Patient appears to be nontoxic. Complaints of nausea, vomiting, diarrhea, weakness, sweats, chills, and abdominal cramping x3 days. She reports she has vomited at least 3 times this morning. Last time she vomited was just prior to arrival. Has been taking Zofran without relief of nausea. Feels as though she is weak and dehydrated. She denies any muscle cramping. No known fevers. Does have chronic nasal congestion. Denies sore throat. Denies any pain currently. Plan: I suspect patient has nausea, vomiting, diarrhea, with mild dehydration. Patient has been taking Zofran without relief. Shared decision making performed-offered to try and send patient home with different antinausea medication and she can attempt to rehydrate or she may go to the emergency room for IV fluids and possibly receive IV antinausea medications. Patient would like to go to the emergency room for further evaluation/IV fluids. Patient would like to go to [facility]. Discussed case with Dr. Flynn at [facility] and she accepts patient for transfer. Supportive measures were discussed with the patient and they voiced understanding discharge instructions and agrees to treatment plan. Return precautions reviewed Differential Diagnosis Differential diagnosis: Likely traveler's diarrhea, food poisoning, gastroenteritis, clostridium difficile infection, drug-induced nausea and vomiting and dehydration Discharge Plan Discharge Clinical Impression: Gastroenteritis, Dehydration Patient Disposition: Acute Care Hospital Condition: Stable Patient Language: Bahamian Prescriptions: No Action estradiol-norethindrone acet [Mimvey] 1-0.5 mg tablet 1 tablet PO DAILY multivitamin [Daily Multi-Vitamin] Tablet 1 tablet PO DAILY azelastine 137 mcg (0.1 %) aerosol,spray 1 spray intranasal Q12H Qty: 90 3RF Rx Instructions: administer into each nostril polyethylene glycol 3350 [Miralax] 17 gram/dose powder 17 g PO DAILY hydroxyzine HCl 10 mg tablet 10 mg PO BID PRN (Reason: anxiety) Qty: 30 0RF montelukast 10 mg tablet 10 mg PO HS Qty: 90 3RF baclofen 20 mg tablet 60 mg PO QHS Qty: 270 1RF lisinopril 10 mg tablet 10 mg PO HS Qty: 90 3RF ondansetron 8 mg tablet,disintegrating 8 mg PO Q12H PRN (Reason: nausea and vomiting) Qty: 10 0RF Follow-up/Referrals: Molly Paz APRN [Primary Care Provider, Family Practice] Time of Disposition: 11:25 Quality NIHSS Nursing Documentation ED NIHSS nursing documentation: reviewed/agree
[2025-04-08 11:11] VITALS: BP 151/80; PULSE 89; RESP 16; TEMP 35.9; O2SAT 100
--- OUTSIDE RECORDS SUMMARY | 2025-04-08 12:23 | XMS_ITS | Patient Health Record ---
Author Organization [facility] [employer] [place] ([address]) Address [address] [place] [address] Care Team Providers Care Associate Material Handler Name Role Phone Molly Oliveira Primary Care Provider Mehnaz danieleilable Veronica Lieberman Unavailable [phone] Melita Capps Unavailable [phone] Allergies No Known Allergies Reason For Referral No Information Medications Medication SIG (Take, Route, Frequency, Duration) Notes Start Date End Date Status Afrin 12 Hour 0.05 % 4 sprays (2 sprays in each nostril) Nasally Twice a day Active Azelastine HCl 137 MCG/SPRAY 1 puff in each nostril Nasally Twice a day Active Baclofen 20 MG TAKE 3 TABLETS BY MO UTH EVERY DAY AT BEDTIME Oral; Duration: 90 Days Active hydrOXYzine HCl 10 MG TAKE 1 TABLET BY M OUTH TWICE A DAY FOR 30 DAYS Oral; Duration: 90 Days Active ALPRAZolam 0.5 MG TAKE 1 TABLET BY MIKKI TH THREE TIMES A DAY Oral; Duration: 30 Days Active Cetirizine HCl 10 MG 1 tablet Orally Onc e a day; Duration: 30 days 05/23/2024 Active Lisinopril 10 MG 1 tablet Oral Once a day; Duration: 90 days Active Nasal Washes N/A as directed intranasally 05/23/20 Active Montelukast Sodium 10 MG 1 tablet Oral O nce a day; Duration: 90 days Active Immunizations Vaccine Route Administration Date Status Comme nts NOC Tdap Unknown 06/27/2020 [facility] Social History Tobacco Use: Social History Observation Description Date Details (start date - stop date) Former Smoker NA - NA Smoking Smart Form: Question Answer Notes Are you a: former smoker Tobacco Control (Standard) Question Answer Notes Tobacco use: Former smoker Problems Problem Type SNOMED Code ICD Code Onset Dates Problem Status W/U Status Risk Notes Problem Anxiety disorder (696861144) Anxiety disorder, unspecified (F41.9) Active confirmed Problem Migraine without aura, not refractory (disorder) (220897150) Migraine, unspecified, not intractable, without status migrainosus (G43.909) Active confirmed Problem Chronic allergic conjunctivitis (34682741) Other chronic allergic conjunctivitis (H10.45) Active confirmed Problem Allergic rhinitis caused by pollen (disorder) (54259482) Allergic rhinitis due to pollen (J30.1) Active confirmed Problem Allergic rhinitis (43976734) Other allergic rhinitis (J30.89) Active confirmed Problem Dysphagia (66446793) Dysphagia, unspecified (R13.10) Active confirmed Problem Allergic rhinitis caused by animal hair and dander (304117039071828) Allergic rhinitis due to animal (cat) (dog) hair and dander (J30.81) Active confirmed Problem Essential hypertension (67784977) Essential (primary) hypertension (I10) Active confirmed Vital Signs Oximetry 99 % 05/23/2024 Blood pressure diastolic 81 mm Hg 05/23/2024 Height 62 in 05/23/2024 Blood pressure systolic 129 mm Hg 05/23/2024 Weight 232.2 lbs 05/23/2024 BMI 42.47 kg/m2 05/23/2024 Encounters Encounter Location Date Provider Diagnosis [facility] [address] [address] 05/23/2024 Veronica Lieberman Allergic rhinitis du e to pollen J30.1 ; Allergic rhinitis due to animal (cat) (dog) hair and dander J30.81 ; Other allergic rhinitis J30.89 ; Other chronic allergic conjunctivitis H10.45 ; Nasal congestion R09.81 ; Dysphagia, unspecified R13.10 ; Migraine, unspecified, not intractable, without status migrainosus G43.909 and Essential (primary) hypertension I10 [facility] [address] [place] [address] [address] 04/26/2024 Melita [facility] [place] [address] [facility] [address] [place] [address] 05/23/2024 Veronica Lieberman Assessments Encounter Date Diagnosis (ICD Code) Assessment Notes Treatment Notes Treatment Clinical Notes Section Notes 05/23/2024 Allergic rhinitis due to pollen (ICD-10 - J30.1) Given the history and symptoms, skin testing was performed to common aeroallergens to determine atopic status. Laurie clearly suffers from atopic disease based upon our skin testing and clinical history. Accordingly, we have introduced a new, aggressive medication regimen, discussed nasal washes and allergy-specific avoidance measures. We also discussed adjunctive therapies including subcutaneous, specific allergen immunotherapy as relates to the treatment and prevention of atopic disease. She is currently considering the risks, benefits and alternatives to this care. Risks: bleeding, infection, allergic reaction, anaphylaxis; Benefits: reduced need for medications, improved symptoms, disease modification. Alternatives: watch/wait, change medication regimen, improve allergy avoidance measures. - Start medications as listed above. Instructed she needs to stop Afrin and start daily Flonase due to rebound congestion. - Patient is considering SCIT - wants to determine OOP first. Recommend premedication with Zyrtec prior. - AIE not ordered, but proper demonstration given. Will order if she decides to pursue SCIT. - Recommend ENT evaluation given ongoing congestion. - Follow-up in 1 month for interval evaluation and management 05/23/2024 Allergic rhinitis due to animal (cat) (dog) hair and dander (ICD-10 - J30.81) Follow allergen avoidance, meds and consider SCIT as an adjunctive treatment to current regimen 05/23/2024 Other allergic rhinitis (ICD-10 - J30.89) Follow allergen avoidance, meds and consider SCIT as an adjunctive treatment to current regimen 05/23/2024 Other chronic allergic conjunctivitis (ICD-10 - H10.45) Given ocular signs and symptoms I encouraged allergy avoidance measures and meds as above. If symptoms persist, consider adding additional medications including intraocular antihistamine/mas t cell stabilizer, PRN and consider SCIT as an adjunctive measure 05/23/2024 Nasal congestion (ICD-10 - R09.81) Educated that Afrin contains Oxymetazoline, which causes rhinitis medicamentosa. Instructed to attempt daily Flonase and avoid Afrin. Consider low dose steroids if no imrpovement. - No evidence of nasal polyps on exam, but view is obstructed due to 4+ nasal turbinates - Recommend ENT evaluation. 05/23/2024 Dysphagia, unspecified (ICD-10 - R13.10) Laurie reports 1-2 weeks of dyspagia, with feeling of sensation of lump in throat. Denies current symptoms. Denies GI evaluation. - Recommend GI evaluation. 05/23/2024 Migraine, unspecified, not intractable, without status migrainosus (ICD-10 - G43.909) Laurie reports weekly migraines that she attributes to ongoing nasal congestion. Currently treats with Excedrin migraine and ice packs. She denies neurology evalaution. - Recommend neurology evaluation 05/23/2024 Essential (primary) hypertension (ICD-10 - I10) BP elevated today without symptoms of urgency or emergency. Continue serial checks and follow-up with PCP Plan Of Treatment No Information Insurance Providers Payer Name Payer Address Payer Phone Subscriber Number Group Number Insured Name Patient Relationship to Insured Coverage Start Date Coverage End Date [facility] [address] [address] [place] [address] [id number] Laurie Garcia Self - patient is the insured 4 Medical (General) History Medical History History ICD Code Essential (primary) hypertension I10 Anxiety disorder, unspecified F41.9 Surgical History Surgery Date(Month/Year) Hysterectomy 11/14/2023
--- OUTSIDE RECORDS SUMMARY | 2025-04-08 12:23 | XMS_ITS | Clinical Summary ---
Author Organization [facility] Address [address] [place] [address] Care Team Providers Care Wirer Helper Name Role Phone Unavailable Primary Care Provider [...] 3:38 PM CDT Height 157.5 cm (5' 2) 01/15/2013 3:38 PM CDT Body Mass Index 43.16 01/15/2013 3:38 PM CDT Plan of Treatment Health Maintenance Due Date Last Done Comments Cervical Cancer Screening Pa p Smear (Age 30 to 64) Every 3 Years 1981 Annual Physical 1984 Hepatitis C 1999 DTaP, Tdap and Td Vaccines ( 1 - Tdap) 2000 Hepatitis B Vaccines (1 of 3 - 19+ 3-dose series) 2000 HPV Vaccines (1 - 3-dose SCD M series) 2008 Cervical Cancer Screening Pa p with HPV Testing (Age 30 to 64) Every 5 Years 2011 Cervical Cancer Screening with HPV 2011 Mammogram Screening 2021 COVID-19 Vaccine ( - 2023-2 5 season) 2025 Influenza Adult (#1) 2025 Meningococcal B Vaccine Aged Out No l onger eligible based on patient's age to complete this topic Meningococcal Vaccine Aged Out No srikanth joe eligible based on patient's age to complete this topic Pneumococcal Vaccine: Pediat rics (0 to 5 Years) and At-Risk Patients (6 to 49 Years) Aged Out No longer eligible b ased on patient's age to complete this topic RSV Immunizations Under 20 Months Aged Out No longer eligible based on patient's age to complete this topic
== END 2025-04-08 11:46 | disposition short-term general hospital (02) ==
PROVIDERS: Emergency Provider Nurse Practitioner Family; PCP Nurse Practitioner Family
DX: K52.9 Noninfective gastroenteritis and colitis, unspecified (principal); E86.0 Dehydration; Z87.891 Personal history of nicotine dependence; I10 Essential (primary) hypertension; E78.5 Hyperlipidemia, unspecified; E66.9 Obesity, unspecified; Z68.35 Body mass index [BMI] 35.0-35.9, adult; F41.9 Anxiety disorder, unspecified
CPT/HCPCS: 99212; G0463

== ENCOUNTER 2025-04-08 11:43 | Emergency (ER) | payer OTHER, SELFPAY ==
--- NOTE | ~2025-04-08 | CT_ITS ---
EXAMINATION: CT abdomen pelvis w con DATE: 04/08/2025 16:11 INDICATION: One year of intermittent epigastric abdominal pain TECHNIQUE: Computed tomography (CT) of the abdomen and pelvis was performed with 100 mL Omnipaque-350 intravenous contrast. Automated exposure control and iterative reconstruction technique were employed. The dose-length product was 697.71 mGy-cm. COMPARISON: CT dated 11/02/2017 FINDINGS: Lung bases are clear. Heart size is normal. No pericardial or pleural effusion. Focal hepatic steatosis at the ligamentum teres. 8 mm low-attenuation lesion more posterior in the right hepatic lobe. Gallbladder, spleen, pancreas, bilateral adrenal glands and kidneys are normal. Bowels including the appendix are normal. Bladder is normal. The uterus is not identified and has likely been surgically resected. No free intraperitoneal gas or fluid. No pathologically enlarged abdominal or pelvic lymphadenopathy. Small fat-containing umbilical hernia. Mild osteoarthritis at the bilateral sacroiliac joints. IMPRESSION: 1. No acute intra-abdominal/pelvic process. 2. Small fat-containing umbilical hernia. 3. Indeterminate 8 mm hypodense lesion in the right hepatic lobe which in a low- risk individual requires no further follow-up. If patient is high-risk with either known primary malignancy, cirrhosis or other hepatic risk factors would recommend 3-6 month follow-up pre and postcontrast MRI. Reviewed, dictated and finalized at location A. IMPRESSION: 1. No acute intra-abdominal/pelvic process. 2. Small fat-containing umbilical hernia. 3. Indeterminate 8 mm hypodense lesion in the right hepatic lobe which in a low -risk individual requires no further follow-up. If patient is high-risk with ei ther known primary malignancy, cirrhosis or other hepatic risk factors would re commend 3-6 month follow-up pre and postcontrast MRI.
[2025-04-08 12:07] VITALS: BP 157/85; PULSE 75; RESP 16; TEMP 36.6; O2SAT 99
--- NOTE | 2025-04-08 12:14 | PC.NURSE ---
Pt. has history of a hysterectomy. bedside not ordered.
[2025-04-08 12:33] LABS: Hematocrit 45.4 % (37.0-47.0); Hemoglobin 15.3 g/dL (12.0-15.0); Immature Granulocyte Percent A 0.2 % (0-0.5); Lymphocytes Absolute Auto 1.44 K/mm3 (0.9-3.2); Mean Corpuscular HGB Conc 33.7 g/dl (32-36); Mean Corpuscular Hemoglobin 30.5 pg (26-34); Mean Corpuscular Volume 90.6 fl (80-100); Nucleated Red Blood Cells Absolute Auto 0.000 K/mm3 (0.0-0.012); Nucleated Red Blood Cells Perc 0.0 % (0.0-0.2); Platelet Count Result 300 k/mm3 (150-375); Red Blood Count 5.01 M/mm3 (4.2-5.4); White Blood Count 10.1 K/mm3 (4.5-10.0)
[2025-04-08 12:34] LABS: BEDSIDEPREGUCG Negative (Negative)
[2025-04-08 12:53] LABS: Add Urine Microscopic? YES; Appearance Urine Clear (Clear); Glucose Urine UA Negative (Negative); Leukocyte Esterase Ur Negative LEU/UL (Negative); Nitrate Urine Negative (Negative); Non Pathogenic Casts 0-2; Specific Grav Ur 1.027 (1.001-1.035)
[2025-04-08 13:02] LABS: Alanine Aminotransferase 20 U/L (6-35); Albumin Level 4.7 g/dL (3.5-5.1); Alkaline Phosphatase 63 U/L (38-126); Anion Gap 15 mmol/L (4-12); Aspartate Amino Transferase 28 U/L (14-36); Bilirubin,Total 0.9 mg/dL (0.2-1.3); Blood Urea Nitrogen 9 mg/dL (7-17); Calcium 9.7 mg/dL (8.4-10.2); Carbon Dioxide 18 mmol/L (22-30); Chloride 106 mmol/L (98-107); Estimated CRCL calculation 85 ml/min; Estimated Glomerular Filt Rate > 60; Glucose 94 mg/dL (65-110); Lipase 64 U/L (23-300); Potassium 3.6 mmol/L (3.4-5.0); Sodium 139 mmol/L (137-145); Total Protein 8.7 g/dL (6.3-8.2)
--- NOTE | 2025-04-08 14:51 | ED.NAVMDI ---
HPI - Nausea/Vomiting/Diarrhea General Chief complaint: Nausea/Vomiting/Diarrhea Stated complaint: n/v/d Time Seen by Provider: 04/08/25 14:37 Source: patient, family () and other (Titi DEBBIE at [facility] provider report AGENT BASED MODELER) Mode of arrival: ambulatory Limitations: no limitations History of Present Illness HPI Narrative: Titi LEWIS had reported: Multiple episodes in both emesis and diarrhea as well as myalgias. He had concern for dehydration. She was experiencing abdominal cramping. He felt she needed IV fluids. She has been taking Zofran at home which was not helping. He noted that her vital signs at urgent care were okay, blood pressure 151/80, heart rate 83, saturating 100% on room air. Patient came by private vehicle. = Reports multiple episodes of nausea/vomiting/diarrhea with hot and cold flashes and epigastric abdominal pain. AUBREY 3 days ago. Had a C section in 2010 and a hysterectomy in October 2023. Ovaries were left. Has been on HRT for ~1 year but believes her symptoms might be due to the HRT. No other new meds. Reports losing 30-40 pounds in the past approximately 6 weeks. Took HRT last night. No fevers but shaking. No sick contacts. Uses marijuana. She reports that she sees an DEBBIE in Dr Baker's office. Related Data Home Medications ?Medication ?Instructions ?Recorded ?Confirmed ?Last Taken ?Type multivitamin (Daily Multi-Vitamin 1 tablet PO DAILY 09/23/23 04/08/25 11/10/23 History tablet) estradiol-norethindrone acet 1 1 tablet PO DAILY 09/19/24 04/08/25 Unknown History mg-0.5 mg tablet (Mimvey) polyethylene glycol 3350 17 17 g PO DAILY 03/29/25 03/29/25 Unknown History gram/dose oral powder (Miralax) Allergies Allergy/AdvReac Type Severity Reaction Status Date / Time No Known Allergies Allergy Verified 04/08/25 15:18 [facility] Past Medical History Medical History Hormone replacement therapy (HRT) Anxiety Hyperlipidemia Obese Hypertension Allergies Surgical History Surgical History (Updated 04/11/25 @ 21:11 by Aleksandra Flynn MD) H/O: hysterectomy due for fibroids October 2023 History of 2010 Hx of LASIK H/O dilation and curettage Family History Family History Father Diabetes mellitus Sibling Depression Grandparent Diabetes mellitus Hypertension Heart disease Social History Social History (Updated 04/11/25 @ 21:12 by Aleksandra Flynn MD) Social History: 09/16/24 Very confident with medical forms Years smoked: 10 Smoking status: Former smoker Alcohol intake: never Substance use: never Last use: 06/27/2011 Do You Feel Safe in your Home?: Yes Lack of Transportation: No Lack of Food: Never True Current Housing: I Have Housing Concerned About Future Housing: No Difficulty Paying Gas/Electric Bills: No Difficulty Paying for Meds: No Currently Unemployed: No Education: Bachelor's Degree Difficulty w/ Childcare or Family Care: No Living arrangements: with family Additional living arrangements comments: and daughter Occupation/Education: occupation 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 HEAD: Normocephalic, atraumatic. EYES: Non injected, non icteric ENT: Nares clear, no rhinorrhea or epistaxis. Gross auditory acuity intact. NECK: Supple. No meningismus. CHEST: Speaking in full sentences. No respiratory distress. HEART: Regular rate and rhythm. . ABDOMEN: Soft, nondistended. TTP at the epigastrium and upper quadrants. No rigidity or guarding. Not peritoneal EXTREMITIES: Normal range of motion. No lower extremity edema. SKIN: Warm, dry, no rash. NEURO: No focal deficits. Alert and oriented. Answering questions. Following commands. Normal speech without aphasia or dysarthria. PSYCH: Normal mood and affect. Course Vital Signs Vital signs: Vital Signs Temperature 97.8 F 04/08/25 12:07 Pulse Rate 75 04/08/25 12:07 Respiratory Rate 16 04/08/25 12:07 Blood Pressure 157/85 H 04/08/25 12:07 Pulse Oximetry 99 04/08/25 12:07 Oxygen Delivery Room Air 04/08/25 12:07 Temperature 97.7 F 04/08/25 15:15 Pulse Rate 76 04/08/25 17:29 Respiratory Rate 16 04/08/25 17:29 Blood Pressure 124/71 04/08/25 17:29 Pulse Oximetry 99 04/08/25 17:29 Oxygen Delivery Room Air 04/08/25 15:15 MDM - Nausea/Vomiting/Diarrhea MDM Narrative Medical decision making narrative: In the emergency department she is afebrile with vital signs that show hypertension. 1L IV fluids ordered given patient was sent to the ED from for such. IV Zofran and morphine also ordered. Serum negative (patient is s/p hysterectomy). Very mild leukocytosis and very mild elevation in hemoglobin. I suspect small degree of hemoconcentration. CT imaging ordered given mild TTP but also the chronicity and reported weight loss. Lipase normal. Urinalysis with some bacteriuria but other paul no marked signs of infection. There is also some mild microscopic hematuria. Will defer antibiotics given this is not the location of patient's pain she is otherwise asymptomatic. Urine culture is ordered. Notably, patient has ketonuria 4+. She has normal function but with an anion gap. I suspect a degree of starvation ketosis. Will also order dextrose containing fluids. Patient is reassessed at approximately 4:50pm. Nausea is better, still having pain. Small dose haldol and diphenhydramine ordered. Viral swab negative. UDS positive for cannabinoids. Patient did not produce a stool sample while she was in the emergency department, less likely C diff given this. Differential Diagnosis Differential diagnosis: Likely traveler's diarrhea, food poisoning, gastroenteritis, clostridium difficile infection, drug-induced nausea and vomiting, dehydration and other (gastritis; viral syndrome; colitis/enteritis; malignancy; hyperemesis cannabinoid; malignancy) Lab Data Attestation: I reviewed the patient's lab results. 04/08/25 12:26 04/08/25 12:26 Labs: Lab Results 04/08/25 04/08/25 04/08/25 Range/Units 12:26 12:32 15:29 WBC 10.1 H (4.5-10.0) K/mm3 RBC 5.01 (4.2-5.4) M/mm3 Hgb 15.3 H (12.0-15.0) g/dL Hct 45.4 (37.0-47.0) % MCV 90.6 (80-100) fl MCH 30.5 (26-34) pg MCHC 33.7 (32-36) g/dl RDW 13.3 (11.5-14.5) % Plt Count 300 (150-375) k/mm3 MPV 9.6 (7.4-10.4) fl Immature Gran % (Auto) 0.2 (0-0.5) % Neut % (Auto) 80.0 H (45.5-73.1) % Lymph % (Auto) 14.2 L (18.3-44.2) % [place] % (Auto) 5.1 (2.6-8.5) % Eos % (Auto) 0.2 (0-4.4) % Baso % (Auto) 0.3 (0.2-1.2) % Lymph # (Auto) 1.44 (0.9-3.2) K/mm3 [place] # (Auto) 0.5 (0.1-0.6) K/mm3 Eos # (Auto) 0.0 (0-0.3) K/mm3 Baso # (Auto) 0.0 (0.0-0.1) K/mm3 Abs Immat Gran (auto) 0.02 (0.00-0.031) K/mm3 Absolute Neuts (auto) 8.1 H (1.3-6.7) K/mm3 Absolute Nucleated RBC 0.000 (0.0-0.012) K/mm3 Nucleated RBC % 0.0 (0.0-0.2) % Sodium 139 (137-145) mmol/L Potassium 3.6 (3.4-5.0) mmol/L Chloride 106 (98-107) mmol/L Carbon Dioxide 18 L (22-30) mmol/L Anion Gap 15 H (4-12) mmol/L BUN 9 D (7-17) mg/dL Creatinine 0.77 (0.7-1.0) mg/dL Estim Creat Clear Calc 85 ml/min Estimated GFR > 60 (59 - ) Glucose 94 (65-110) mg/dL Calcium 9.7 (8.4-10.2) mg/dL Magnesium 1.7 (1.6-2.3) mg/dL Total Bilirubin 0.9 (0.2-1.3) mg/dL AST 28 (14-36) U/L ALT 20 (6-35) U/L Alkaline Phosphatase 63 (38-126) U/L Total Protein 8.7 H (6.3-8.2) g/dL Albumin 4.7 (3.5-5.1) g/dL Lipase 64 (23-300) U/L Serum HCG, Qual Negative Urine Color Yellow (Yellow) Urine Appearance Clear (Clear) Urine pH 5.5 (5.0-9.0) Ur Specific [place] 1.027 (1.001-1.035) Urine Protein 1+ H (Negative) mg/dL Urine Glucose (UA) Negative (Negative) mg/dL Urine Ketones 4+ H (Negative) mg/dL Ur Blood (Man) 1+ H (Negative) Urine Nitrate Negative (Negative) Urine Bilirubin Negative (Negative) Urine Urobilinogen 0.2 (<2.0) mg/dL Leukocyte Esterase Rfl Negative (Negative) JORGE/UL Urine RBC 11-20 H (0-2) /hpf Urine WBC 0-5 (0-3) /hpf Ur Squamous Epith Cells Few (Few) /hpf Urine Bacteria 2+ H /hpf Urine Casts 0-2 POC Urine HCG, Qual Negative (Negative) Urine Opiates Screen Negative (Negative) Urine Methadone Screen Negative (Negative) Ur Barbiturates Screen Negative (Negative) Ur Phencyclidine Scrn Negative (Negative) Ur Amphetamine Screen Negative (Negative) U Benzodiazepines Scrn Negative (Negative) Urine Cocaine Screen Negative (Negative) U Cannabinoids Screen Positive A (Negative) Influenza A (RT-PCR) Negative (Negative) Influenza B (RT-PCR) Negative (Negative) SARS-CoV-2 RNA (RT-PCR) Negative (Negative) Imaging Data Radiologist's impression: IMPRESSION: 1. No acute intra-abdominal/pelvic process. 2. Small fat-containing umbilical hernia. 3. Indeterminate 8 mm hypodense lesion in the right hepatic lobe which in a low-risk individual requires no further follow-up. If patient is high-risk with either known primary malignancy, cirrhosis or other hepatic risk factors would recommend 3-6 month follow-up pre and postcontrast MRI. Discharge Plan Discharge Clinical Impression: Epigastric abdominal pain, Nausea & vomiting, Diarrhea, Hernia, umbilical, Liver lesion, right lobe, Marijuana use, Gastroenteritis Instructions: Antibiotic Form, Gastroenteritis (DC), Umbilical Hernia (ED), Acute Nausea and Vomiting (DC), Epigastric Pain (ED) Additional Instructions: Continue taking your medications as prescribed though with your medical team regarding the HRT use and your symptoms. CT showed the incidental finding: Indeterminate 8 mm hypodense lesion in the right hepatic lobe which in a low-risk individual requires no further follow-up. If patient is high-risk with either known primary malignancy, cirrhosis or other hepatic risk factors would recommend 3-6 month follow-up pre and postcontrast MRI. Your PCP can review this. Return to the emergency department any new or worsening symptoms. You can try using oral disintegrating tablets of Zofran if continuing to have nausea/vomiting. Rest and maintain your hydration. Patient Language: Hebrew Prescriptions: New ondansetron HCl 4 mg tablet 4 mg PO Q8H PRN (Reason: nausea and vomiting) Qty: 7 0RF No Action estradiol-norethindrone acet [Mimvey] 1-0.5 mg tablet 1 tablet PO DAILY multivitamin [Daily Multi-Vitamin] Tablet 1 tablet PO DAILY azelastine 137 mcg (0.1 %) aerosol,spray 1 spray intranasal Q12H Qty: 90 3RF Rx Instructions: administer into each nostril polyethylene glycol 3350 [Miralax] 17 gram/dose powder 17 g PO DAILY hydroxyzine HCl 10 mg tablet 10 mg PO BID PRN (Reason: anxiety) Qty: 30 0RF montelukast 10 mg tablet 10 mg PO HS Qty: 90 3RF baclofen 20 mg tablet 60 mg PO QHS Qty: 270 1RF lisinopril 10 mg tablet 10 mg PO HS Qty: 90 3RF ondansetron 8 mg tablet,disintegrating 8 mg PO Q12H PRN (Reason: nausea and vomiting) Qty: 10 0RF Follow-up/Referrals: Molly Paz APRN [Primary Care Provider, Family Practice] Maureen Baker MD [Physician, [facility]] Stand Alone Forms: Work/School Release IP Time of Disposition: 17:47
[2025-04-08 15:15] VITALS: BP 154/94; PULSE 73; RESP 17; TEMP 36.5; O2SAT 100
[2025-04-08 15:25] LABS: SPREG INTERNAL CONTROL Positive; Serum Qual hCG Negative
[2025-04-08 15:27] LABS: Magnesium 1.7 mg/dL (1.6-2.3)
[2025-04-08] MEDS: SODIUM CHLORIDE 0.9% IV 1,000 ML 999 ML IV CONT (15:29)
[2025-04-08] MEDS: ONDANSETRON INJ 4 MG/2 ML VIAL IV PUSH (15:31)
[2025-04-08] MEDS: MORPHINE SULFATE (*CRX) 4 MG/ML INJ IV PUSH (15:32)
--- OUTSIDE RECORDS SUMMARY | 2025-04-08 15:52 | XMS_ITS | Clinical Summary ---
Author Organization [facility] Address [address] [place] [id number] Care Team Providers Care Single Wire Saw Operator Name Role Phone Unavailable Primary Care Provider [...]
[2025-04-08] MEDS: DEXTROSE 5%/0.9% SOD CHL 1,000 ML 500 ML IV CONT (16:18)
[2025-04-08 16:34] LABS: Influenza A QL RT-PCR Negative (Negative); Influenza B QL RT-PCR Negative (Negative); SARS-CoV-2 RNA PCR Negative (Negative)
[2025-04-08 16:56] LABS: Cannabinoid Screen Urine Positive (Negative)
[2025-04-08 17:29] VITALS: BP 124/71; PULSE 76; RESP 16; O2SAT 99
[2025-04-08] MEDS: HALOPERIDOL LACTATE 5 MG/ML VIAL 2.5 MG IV PUSH (17:32)
== END 2025-04-08 17:58 | disposition home or self-care (01) ==
PROVIDERS: Emergency Provider Student in an Organized Health Care Education/Training Program; PCP Nurse Practitioner Family
DX: R10.13 Epigastric pain (principal); R11.2 Nausea with vomiting, unspecified; K42.9 Umbilical hernia without obstruction or gangrene; K76.9 Liver disease, unspecified; K52.9 Noninfective gastroenteritis and colitis, unspecified; F12.90 Cannabis use, unspecified, uncomplicated; Z20.822 Contact with and (suspected) exposure to COVID-19; F41.9 Anxiety disorder, unspecified; E78.5 Hyperlipidemia, unspecified; I10 Essential (primary) hypertension
CPT/HCPCS: 36415; 74177; 80053; 80307; 81001; 81025; 83690; 83735; 84703; 85025; 87086; 87636; 96361; 96374; 96375; 99284; J1200; J1630; J2270; J2405; J7030; J7042; Q9967

== ENCOUNTER 2025-04-22 13:54 | Emergency (ER) | payer OTHER, SELFPAY ==
--- OUTSIDE RECORDS SUMMARY | 2024-06-04 12:30 | XMS_ITS ---
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 OIL WELL LOGGER Allergies. * Medical History: Objective: * Vitals: Assessment: Plan: * Treatment: * Billing Information: * Visit Code: * Procedure Codes: * Electronic signature of Melita Capps DNP, FNP-C on 04/22/2025 at 03:35 PM CDT Sign off status: Pending * Provider: Sena Capps DNP HEAD RIGGER-C Date: 1 08/05/2023 Generated for Pushpa Donato/Juan Jose on: 03:35 PM CDT
--- NOTE | ~2025-04-22 | XR_ITS ---
Clinical history:Abdominal pain EXAM:X-ray chest TECHNIQUE:Frontal and lateral images of the chest were obtained. Comparisons:06/11/2013 FINDINGS: Heart is not enlarged. No pneumothorax. No pleural effusion. No free air the diaphragm. No focal pulmonary consolidation. IMPRESSION: 1. No acute pulmonary process identified. If symptoms persist or worsen, consider a short-term follow-up study or additional imaging for further assessment. Reviewed, dictated and finalized at location Q. IMPRESSION: 1. No acute pulmonary process identified. If symptoms persist or worsen, consider a short-term follow-up study or additio nal imaging for further assessment.
--- NOTE | ~2025-04-22 | CT_ITS ---
EXAMINATION: CT abdomen pelvis wo con DATE: 04/22/2025 17:08 INDICATION: Epigastric pain. Microscopic hematuria. TECHNIQUE: Computed tomography (CT) of the abdomen and pelvis was performed without intravenous contrast. Automated exposure control and iterative reconstruction technique were employed. The dose-length product was 317.22 mGy-cm. COMPARISON: None FINDINGS: Lung bases are clear. Heart size is normal. No pericardial or pleural effusion. Liver, gallbladder, spleen, pancreas and bilateral adrenal glands are normal. Kidneys and ureters are normal with no urolithiasis, hydroureteronephrosis or perinephric/ureteral stranding. Bowels including the appendix are normal. Bladder is normal. The uterus is not identified and has likely been surgically resected. 2.2 cm left adnexal cyst. Right adnexa is unremarkable. No free intraperitoneal gas or fluid. Small fat-containing umbilical hernia. No pathologically enlarged abdominal or pelvic lymphadenopathy. Mild lumbar and lower thoracic spondylosis. IMPRESSION: 1. No urolithiasis or acute intra-abdominal/pelvic process. 2. Small fat-containing umbilical hernia. Reviewed, dictated and finalized at location A.
--- NOTE | ~2025-04-22 | US_ITS ---
EXAMINATION: US pelvic complete w TV DATE: 04/22/2025 18:26 INDICATION: Left adnexal pain TECHNIQUE: Multiple transabdominal and endovaginal sonographic images of the pelvis were obtained. COMPARISON: Ultrasound dated 08/15/[address] dated 04/22/2025 FINDINGS: The uterus is not visualized consistent with reported hysterectomy. The right ovary measures 2.5 x 1.6 x 1.6 cm. The left ovary measures 2.9 x 2.6 x 2.7 cm. 2.2 cm anechoic cyst at the left ovary. Vascular flow identified in both ovaries on color Doppler. There is no free fluid in the pelvis. IMPRESSION: 1. Status post hysterectomy 2. Vascular flow in both ovaries with 2.2 cm left ovarian cyst. Reviewed, dictated and finalized at location A.
--- NOTE | 2025-04-22 14:39 | ED_ITS ---
HPI - Abdominal Pain General Chief Complaint: Abdominal Pain <ASHLYN Jacobo - Last Filed: 04/22/25 15:24> Stated Complaint: hot/cold sweats. abdominal pain. Nausea <ASHLYN Jacobo - Last Filed: 04/22/25 15:24> Time Seen by Provider: 04/22/25 15:24 <ASHLYN Jacobo - Last Filed: 04/22/25 15:24> Focused HPI: Here one and a half weeks ago with abdominal pain was told Gastroenteritis and was discharged after CT Scan. At home has been taking Nausea meds of Zofran and eating a bland diet and it did get better, but yesterday started again with pain diffusely starting midline and goes to lower abdomen. Described as a cramp with nausea and vomiting. One episode of diarrhea. She gets shaky, diaphoretic and cold. No known ill contact and no recent travel. No hematemesis, melanotic stools or hematochezia. Eating makes worse which starts the cramping. Hx of Hysterectomy and . GENERAL: Well-appearing, well-nourished, and in no acute distress. HEAD: Normocephalic, atraumatic. CHEST: Clear to auscultation. ?No respiratory distress. HEART: Regular rate and rhythm.? ABDOMINAL: Diffuse tenderness, non-focal. Patient screened in triage and initial orders placed.? ?Additional care and disposition to be based upon?diagnostic testing and treatment. <ASHLYN Jacobo - Last Filed: 04/22/25 15:24> Source: patient <ASHLYN Jacobo - Last Filed: 04/22/25 15:24> Mode of arrival: ambulatory <ASHLYN Jacobo - Last Filed: 04/22/25 15:24> Limitations: no limitations <ASHLYN Jacobo - Last Filed: 04/22/25 15:24> Related Data Home Medications: Home Medications ?Medication ?Instructions ?Recorded ?Confirmed ?Last Taken ?Type multivitamin (Daily Multi-Vitamin 1 tablet PO DAILY 04/08/25 11/10/23 History tablet) estradiol-norethindrone acet 1 1 tablet PO DAILY 09/1904/08/25 Unknown History mg-0.5 mg tablet (Mimvey) polyethylene glycol 3350 17 17 g PO DAILY 03/29/2509/18 Unknown History gram/dose oral powder (Miralax) <ASHLYN Jacobo - Last Filed: 04/22/25 15:24> Allergies/Adverse Reactions: Allergies Allergy/AdvReac Type Severity Reaction Status Date / Time No Known Allergies Allergy Verified 04/08/25 15:18 <ASHLYN Jacobo - Last Filed: 04/22/25 15:24> [facility] Past Medical History Medical History: Medical History Hormone replacement therapy (HRT) Anxiety Hyperlipidemia Obese Hypertension Allergies <ASHLYN Jacobo - Last Filed: 04/22/25 15:24> Surgical History Surgical History: Surgical History (Updated 04/11/25 @ 21:11 by Aleksandra Flynn MD) H/O: hysterectomy due for fibroids October 2023 History of 2010 Hx of LASIK H/O dilation and curettage <ASHLYN Jacobo - Last Filed: 04/22/25 15:24> Family History Family History: Family History Father Diabetes mellitus Sibling Depression Grandparent Diabetes mellitus Hypertension Heart disease <ASHLYN Jacobo - Last Filed: 04/22/25 15:24> Social History Social History: Social History (Updated 04/11/25 @ 21:12 by Aleksandra Flynn MD) Social History: 09/16/24 Very confident with medical forms Years smoked: 10 Smoking status: Former smoker Alcohol intake: never Substance use: never Last use: 06/27/2011 Do You Feel Safe in your Home?: Yes Lack of Transportation: No Lack of Food: Never True Current Housing: I Have Housing Concerned About Future Housing: No Difficulty Paying Gas/Electric Bills: No Difficulty Paying for Meds: No Currently Unemployed: No Education: Bachelor's Degree Difficulty w/ Childcare or Family Care: No Living arrangements: with family Additional living arrangements comments: and daughter Occupation/Education: occupation 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 Also giving her some Bentyl. Workup largely unremarkable. She has been hydrated. Discussed possibility of GI side effects due to RICKEY-inhibitor but also possibly montelukast. She will stop the RICKEY-inhibitor 1st and follow-up with her PCP. She will be provided dicyclomine for home. She may require referral to GI. < Ra Butt MD - Last Filed: 04/22/25 19:30> Vital Signs Vital signs: Vital Signs Temperature 98.2 F 04/22/25 14:46 Pulse Rate 70 04/22/25 14:46 Respiratory Rate 16 04/22/25 14:46 Blood Pressure 149/72 H 04/22/25 14:46 Pulse Oximetry 100 04/22/25 14:46 Oxygen Delivery Room Air 04/22/25 14:46 Temperature 98.2 F 04/22/25 14:46 Pulse Rate 70 04/22/25 14:46 Respiratory Rate 16 04/22/25 14:46 Blood Pressure 149/72 H 04/22/25 14:46 Pulse Oximetry 100 04/22/25 14:46 Oxygen Delivery Room Air 04/22/25 14:46 <ASHLYN Jacobo - Last Filed: 04/22/25 15:24> Vital Signs Temperature 98.2 F 04/22/25 14:46 Pulse Rate 70 04/22/25 14:46 Respiratory Rate 16 04/22/25 14:46 Blood Pressure 149/72 H 04/22/25 14:46 Pulse Oximetry 100 04/22/25 14:46 Oxygen Delivery Room Air 04/22/25 14:46 Temperature 98.2 F 04/22/25 14:46 Pulse Rate 70 04/22/25 14:46 Respiratory Rate 16 04/22/25 14:46 Blood Pressure 149/72 H 04/22/25 14:46 Pulse Oximetry 100 04/22/25 14:46 Oxygen Delivery Room Air 04/22/25 14:46 <Ra Butt MD - Last Filed: 04/22/25 19:30> MDM - Abdominal Pain Differential Diagnosis Differential diagnosis: Likely abdominal pain, constipation, diverticulitis, gastroenteritis, pancreatitis, small bowel obstruction and other (Angioedema, intestinal spasm, IBS) <Ra Butt MD - Last Filed: 04/22/25 19:30> Medical Records Attestation: I reviewed the patient's medical records. <Ra Butt MD - Last Filed: 04/22/25 19:30> Lab Data Attestation: I reviewed the patient's lab results. <Ra Butt MD - Last Filed: 04/22/25 19:30> Result diagrams: 04/22/25 15:42 04/22/25 15:42 <ASHLYN Jacobo - Last Filed: 04/22/25 15:24> Labs: Lab Results 04/22/25 04/22/25 04/22/25 Range/Units 15:42 15:44 18:39 WBC 8.2 (4.5-10.0) K/mm3 RBC 4.84 (4.2-5.4) M/mm3 Hgb 14.7 (12.0-15.0) g/dL Hct 45.2 (37.0-47.0) % MCV 93.4 (80-100) fl MCH 30.4 (26-34) pg MCHC 32.5 (32-36) g/dl RDW 13.6 (11.5-14.5) % Plt Count 352 (150-375) k/mm3 MPV 9.8 (7.4-10.4) fl Immature Gran % (Auto) 0.2 (0-0.5) % Neut % (Auto) 80.9 H (45.5-73.1) % Lymph % (Auto) 14.5 L (18.3-44.2) % [place] % (Auto) 4.2 (2.6-8.5) % Eos % (Auto) 0.0 (0-4.4) % Baso % (Auto) 0.2 (0.2-1.2) % Lymph # (Auto) 1.18 (0.9-3.2) K/mm3 [place] # (Auto) 0.3 (0.1-0.6) K/mm3 Eos # (Auto) 0.0 (0-0.3) K/mm3 Baso # (Auto) 0.0 (0.0-0.1) K/mm3 Abs Immat Gran (auto) 0.02 (0.00-0.031) K/mm3 Absolute Neuts (auto) 6.6 (1.3-6.7) K/mm3 Absolute Nucleated RBC 0.000 (0.0-0.012) K/mm3 Nucleated RBC % 0.0 (0.0-0.2) % Sodium 141 (137-145) mmol/L Potassium 3.6 (3.4-5.0) mmol/L Chloride 106 (98-107) mmol/L Carbon Dioxide 26 (22-30) mmol/L Anion Gap 9 (4-12) mmol/L BUN 7 (7-17) mg/dL Creatinine 0.90 (0.7-1.0) mg/dL Estim Creat Clear Calc 75 ml/min Estimated GFR > 60 (59 - ) Glucose 113 H (65-110) mg/dL Lactic Acid 2.4 H 1.2 (0.7-2.0) mmol/L Calcium 9.7 (8.4-10.2) mg/dL Total Bilirubin 0.5 (0.2-1.3) mg/dL AST 30 (14-36) U/L ALT 29 (6-35) U/L Alkaline Phosphatase 54 (38-126) U/L Troponin I < 0.012 (0.000-0.034) ng/mL Total Protein 8.4 H (6.3-8.2) g/dL Albumin 4.7 (3.5-5.1) g/dL Lipase 60 (23-300) U/L Urine Color Yellow (Yellow) Urine Appearance Clear (Clear) Urine pH 7.0 (5.0-9.0) Ur Specific [place] 1.012 (1.001-1.035) Urine Protein Negative (Negative) mg/dL Urine Glucose (UA) Negative (Negative) mg/dL Urine Ketones 2+ H (Negative) mg/dL Ur Blood (Man) 1+ H (Negative) Urine Nitrate Negative (Negative) Urine Bilirubin Negative (Negative) Urine Urobilinogen 0.2 (<2.0) mg/dL Leukocyte Esterase Rfl Negative (Negative) JORGE/UL Urine RBC 6-10 H (0-2) /hpf Urine WBC 0-5 (0-3) /hpf Ur Squamous Epith Cells Occasional (Few) /hpf Urine Bacteria Rare /hpf Urine Casts 0-2 POC Urine HCG, Qual Negative (Negative) <ASHLYN Jacobo - Last Filed: 04/22/25 15:24> Lab Results 04/22/25 04/22/25 04/22/25 Range/Units 15:42 15:44 18:39 WBC 8.2 (4.5-10.0) K/mm3 RBC 4.84 (4.2-5.4) M/mm3 Hgb 14.7 (12.0-15.0) g/dL Hct 45.2 (37.0-47.0) % MCV 93.4 (80-100) fl MCH 30.4 (26-34) pg MCHC 32.5 (32-36) g/dl RDW 13.6 (11.5-14.5) % Plt Count 352 (150-375) k/mm3 MPV 9.8 (7.4-10.4) fl Immature Gran % (Auto) 0.2 (0-0.5) % Neut % (Auto) 80.9 H (45.5-73.1) % Lymph % (Auto) 14.5 L (18.3-44.2) % [place] % (Auto) 4.2 (2.6-8.5) % Eos % (Auto) 0.0 (0-4.4) % Baso % (Auto) 0.2 (0.2-1.2) % Lymph # (Auto) 1.18 (0.9-3.2) K/mm3 [place] # (Auto) 0.3 (0.1-0.6) K/mm3 Eos # (Auto) 0.0 (0-0.3) K/mm3 Baso # (Auto) 0.0 (0.0-0.1) K/mm3 Abs Immat Gran (auto) 0.02 (0.00-0.031) K/mm3 Absolute Neuts (auto) 6.6 (1.3-6.7) K/mm3 Absolute Nucleated RBC 0.000 (0.0-0.012) K/mm3 Nucleated RBC % 0.0 (0.0-0.2) % Sodium 141 (137-145) mmol/L Potassium 3.6 (3.4-5.0) mmol/L Chloride 106 (98-107) mmol/L Carbon Dioxide 26 (22-30) mmol/L Anion Gap 9 (4-12) mmol/L BUN 7 (7-17) mg/dL Creatinine 0.90 (0.7-1.0) mg/dL Estim Creat Clear Calc 75 ml/min Estimated GFR > 60 (59 - ) Glucose 113 H (65-110) mg/dL Lactic Acid 2.4 H 1.2 (0.7-2.0) mmol/L Calcium 9.7 (8.4-10.2) mg/dL Total Bilirubin 0.5 (0.2-1.3) mg/dL AST 30 (14-36) U/L ALT 29 (6-35) U/L Alkaline Phosphatase 54 (38-126) U/L Troponin I < 0.012 (0.000-0.034) ng/mL Total Protein 8.4 H (6.3-8.2) g/dL Albumin 4.7 (3.5-5.1) g/dL Lipase 60 (23-300) U/L Urine Color Yellow (Yellow) Urine Appearance Clear (Clear) Urine pH 7.0 (5.0-9.0) Ur Specific [place] 1.012 (1.001-1.035) Urine Protein Negative (Negative) mg/dL Urine Glucose (UA) Negative (Negative) mg/dL Urine Ketones 2+ H (Negative) mg/dL Ur Blood (Man) 1+ H (Negative) Urine Nitrate Negative (Negative) Urine Bilirubin Negative (Negative) Urine Urobilinogen 0.2 (<2.0) mg/dL Leukocyte Esterase Rfl Negative (Negative) JORGE/UL Urine RBC 6-10 H (0-2) /hpf Urine WBC 0-5 (0-3) /hpf Ur Squamous Epith Cells Occasional (Few) /hpf Urine Bacteria Rare /hpf Urine Casts 0-2 POC Urine HCG, Qual Negative (Negative) <Ra C. Daquan, MD - Last Filed: 04/22/25 19:30> Imaging Data Radiologist's impression: ITS Impressions Chest X-Ray 04/22/25 15:24 IMPRESSION: 1. No acute pulmonary process identified. If symptoms persist or worsen, consider a short-term follow-up study or additional imaging for further assessment. Abdomen/Pelvis CT 04/22/25 17:22 IMPRESSION: 1. No urolithiasis or acute intra-abdominal/pelvic process. 2. Small fat-containing umbilical hernia. Pelvic/Transvag US 04/22/25 18:27 IMPRESSION: 1. Status post hysterectomy 2. Vascular flow in both ovaries with 2.2 cm left ovarian cyst. <ASHLYN Jacobo - Last Filed: 04/22/25 15:24> ITS Impressions Chest X-Ray 04/22/25 15:24 IMPRESSION: 1. No acute pulmonary process identified. If symptoms persist or worsen, consider a short-term follow-up study or additional imaging for further assessment. Abdomen/Pelvis CT 04/22/25 17:22 IMPRESSION: 1. No urolithiasis or acute intra-abdominal/pelvic process. 2. Small fat-containing umbilical hernia. Pelvic/Transvag US 04/22/25 18:27 IMPRESSION: 1. Status post hysterectomy 2. Vascular flow in both ovaries with 2.2 cm left ovarian cyst. <Ra Butt MD - Last Filed: 04/22/25 19:30> Discharge Plan Discharge Clinical Impression: Abdominal cramping <ASHLYN Jacobo - Last Filed: 04/22/25 15:24> Patient Disposition: Home <ASHLYN Jacobo - Last Filed: 04/22/25 15:24> Condition: Stable <ASHLYN Jacobo - Last Filed: 04/22/25 15:24> Instructions: Acute Abdominal Pain (ED) <ASHLYN Jacobo - Last Filed: 04/22/25 15:24> Additional Instructions: You may be having abdominal cramping related to IBS, but could also be a medication side effect from either an RICKEY-inhibitor like lisinopril or a medication like montelukast. Discontinue lisinopril and follow-up with your PCP. You also may require referral to GI. <ASHLYN Jacobo - Last Filed: 04/22/25 15:24> Patient Language: [place] <ASHLYN Jacobo - Last Filed: 04/22/25 15:24> Prescriptions: New dicyclomine 20 mg tablet 20 mg PO QID Qty: 20 0RF No Action estradiol-norethindrone acet [Mimvey] 1-0.5 mg tablet 1 tablet PO DAILY multivitamin [Daily Multi-Vitamin] Tablet 1 tablet PO DAILY azelastine 137 mcg (0.1 %) aerosol,spray 1 spray intranasal Q12H Qty: 90 3RF Rx Instructions: administer into each nostril polyethylene glycol 3350 [Miralax] 17 gram/dose powder 17 g PO DAILY hydroxyzine HCl 10 mg tablet 10 mg PO BID PRN (Reason: anxiety) Qty: 30 0RF montelukast 10 mg tablet 10 mg PO HS Qty: 90 3RF baclofen 20 mg tablet 60 mg PO QHS Qty: 270 1RF ondansetron HCl 4 mg tablet 4 mg PO Q8H PRN (Reason: nausea and vomiting) Qty: 7 0RF lisinopril 10 mg tablet 10 mg PO HS Qty: 90 3RF ondansetron 8 mg tablet,disintegrating 8 mg PO Q12H PRN (Reason: nausea and vomiting) Qty: 10 0RF <ASHLYN Jacobo - Last Filed: 04/22/25 15:24> Follow-up/Referrals: Molly Paz APRN [Primary Care Provider, Family Practice] Min Simmons MD [Physician, Gastroenterology] - 1 Week <ASHLYN Jacobo - Last Filed: 04/22/25 15:24>
[2025-04-22 14:46] VITALS: BP 149/72; PULSE 70; RESP 16; TEMP 36.8; O2SAT 100
--- OUTSIDE RECORDS SUMMARY | 2025-04-22 15:36 | XMS_ITS | Clinical Summary ---
Author Organization [facility] Address [address] [place] [id number] Care Team Providers Care Cardiac Exercise Physiologist Name Role Phone Unavailable Primary Care Provider [...] Mammogram Screening 2021 COVID-19 Vaccine ( - 2024-2 6 season) 2025 Influenza Adult (#1) 2025 Hepatitis A Vaccines Aged Out No long er eligible based on patient's age to complete [...]
--- OUTSIDE RECORDS SUMMARY | 2025-04-22 15:36 | XMS_ITS | Patient Health Record ---
Author Organization [facility] [place] ([address]) Address [address] [place] [address] Care Team Providers Care Db2 Dba Name Role Phone Molly Oliveira Primary Care Provider Mehnaz danieleilable Veronica Lieberman Unavailable [phone] Melita Capps Unavailable [phone] Allergies No Known Allergies Reason For Referral [...] NOC Tdap Unknown 06/27/2020 Administered Portal [facility] Social History Tobacco Use: Social History Observation Description Date Details (start date - stop date) Former Smoker NA - NA Smoking Smart Form: Question Answer Notes Are you a: former smoker Tobacco Control (Standard) Question Answer Notes Tobacco use: Former smoker Problems Problem Type SNOMED Code ICD Code Onset Dates Problem Status W/U Status Risk Notes Problem Anxiety disorder (427745138) Anxiety disorder, unspecified (F41.9) Active confirmed Problem Migraine without aura, not refractory (disorder) (480938350) Migraine, unspecified, not intractable, without status migrainosus (G43.909) Active confirmed Problem Chronic allergic conjunctivitis (65296747) Other chronic allergic conjunctivitis (H10.45) Active confirmed Problem Allergic rhinitis caused by pollen (disorder) (67270710) Allergic rhinitis due to pollen (J30.1) Active confirmed Problem Allergic rhinitis (89094384) Other allergic rhinitis (J30.89) Active confirmed Problem Dysphagia (91844511) Dysphagia, unspecified (R13.10) Active confirmed Problem Allergic rhinitis caused by animal hair and dander (472551578976564) Allergic rhinitis due to animal (cat) (dog) hair and dander (J30.81) Active confirmed Problem Essential hypertension (00988081) Essential (primary) hypertension (I10) Active confirmed Vital Signs Oximetry 99 % 05/23/2024 Blood pressure diastolic 81 mm Hg 05/23/2024 Height 62 in 05/23/2024 Blood pressure systolic 129 mm Hg 05/23/2024 Weight 232.2 lbs 05/23/2024 BMI 42.47 kg/m2 05/23/2024 Encounters Encounter Location Date Provider Diagnosis [facility] [address] [address] 05/23/2024 Veronica Lieberman Allergic rhinitis du e to pollen J30.1 ; Allergic rhinitis due to animal (cat) (dog) hair and dander J30.81 ; Other allergic rhinitis J30.89 ; Other chronic allergic conjunctivitis H10.45 ; Nasal congestion R09.81 ; Dysphagia, unspecified R13.10 ; Migraine, unspecified, not intractable, without status migrainosus G43.909 and Essential (primary) hypertension I10 [facility] [address] [facility] [address] [address] 04/26/2024 Melita [facility] [place] [address] [facility] [address] [place] [address] 05/23/2024 Veronica Lieberman Assessments Encounter Date Diagnosis [...] Insured Coverage Start Date Coverage End Date [facility] [address] [address] [place] [address] [id number] Laurie Garcia Self - patient is the insured 4 Medical (General) History Medical History History ICD Code Essential (primary) hypertension I10 Anxiety disorder, unspecified F41.9 Surgical History Surgery Date(Month/Year) Hysterectomy 11/14/2023
[2025-04-22 15:46] LABS: BEDSIDEPREGUCG Negative (Negative)
[2025-04-22 15:51] LABS: Hematocrit 45.2 % (37.0-47.0); Hemoglobin 14.7 g/dL (12.0-15.0); Immature Granulocyte Percent A 0.2 % (0-0.5); Lymphocytes Absolute Auto 1.18 K/mm3 (0.9-3.2); Mean Corpuscular HGB Conc 32.5 g/dl (32-36); Mean Corpuscular Hemoglobin 30.4 pg (26-34); Mean Corpuscular Volume 93.4 fl (80-100); Nucleated Red Blood Cells Absolute Auto 0.000 K/mm3 (0.0-0.012); Nucleated Red Blood Cells Perc 0.0 % (0.0-0.2); Platelet Count Result 352 k/mm3 (150-375); Red Blood Count 4.84 M/mm3 (4.2-5.4); White Blood Count 8.2 K/mm3 (4.5-10.0)
[2025-04-22 15:58] LABS: Add Urine Microscopic? YES; Appearance Urine Clear (Clear); Glucose Urine UA Negative (Negative); Leukocyte Esterase Ur Negative LEU/UL (Negative); Nitrate Urine Negative (Negative); Non Pathogenic Casts 0-2; Specific Grav Ur 1.012 (1.001-1.035)
[2025-04-22 16:04] LABS: Alanine Aminotransferase 29 U/L (6-35); Albumin Level 4.7 g/dL (3.5-5.1); Alkaline Phosphatase 54 U/L (38-126); Anion Gap 9 mmol/L (4-12); Aspartate Amino Transferase 30 U/L (14-36); Bilirubin,Total 0.5 mg/dL (0.2-1.3); Blood Urea Nitrogen 7 mg/dL (7-17); Calcium 9.7 mg/dL (8.4-10.2); Carbon Dioxide 26 mmol/L (22-30); Chloride 106 mmol/L (98-107); Estimated CRCL calculation 75 ml/min; Estimated Glomerular Filt Rate > 60; Glucose 113 mg/dL (65-110); Lipase 60 U/L (23-300); Potassium 3.6 mmol/L (3.4-5.0); Sodium 141 mmol/L (137-145); Total Protein 8.4 g/dL (6.3-8.2)
[2025-04-22 16:16] LABS: Troponin I < 0.012 ng/mL (0.000-0.034)
--- OUTSIDE RECORDS SUMMARY | 2025-04-22 16:59 | XMS_ITS | Clinical Summary ---
Author Organization [facility] Address [address] [place] [address] Care Team Providers Care Acidity Tester Name Role Phone Unavailable Primary Care Provider [...]
[2025-04-22] MEDS: SODIUM CHLORIDE 0.9% IV 1,000 ML 999 ML IV CONT ×2 (17:24→18:31)
[2025-04-22] MEDS: KETOROLAC 30 MG/ML VIAL (*BKC) IV PUSH (17:25)
[2025-04-22] MEDS: ONDANSETRON INJ 4 MG/2 ML VIAL IV PUSH (17:25)
[2025-04-22] MEDS: MORPHINE SULFATE (*CRX) 4 MG/ML INJ IV PUSH (18:28)
[2025-04-22] MEDS: DICYCLOMINE HCL 10 MG CAPSULE 20 MG PO (19:23)
== END 2025-04-22 19:49 | disposition home or self-care (01) ==
PROVIDERS: Nurse Practitioner Adult Health; Emergency Provider Emergency Medicine; PCP Nurse Practitioner Family
DX: R10.9 Unspecified abdominal pain (principal); F41.9 Anxiety disorder, unspecified; E78.5 Hyperlipidemia, unspecified; I10 Essential (primary) hypertension
CPT/HCPCS: 36415; 71046; 74176; 76830; 76856; 80053; 81001; 81025; 83605; 83690; 84484; 85025; 96361; 96374; 96375; 99284; A9270; J1885; J2270; J2405; J7030